=== PATIENT | female | born 1960 | race Caucasian/White ===

== ENCOUNTER 2016-10-30 19:02 | Inpatient (IN) | payer OTHER ==
[2016-10-30 19:49] LABS: Hematocrit 45 % (35-47); Hemoglobin 14.8 g/dl (12.0-16.0); Mean Corpuscular HGB Conc 33 g/dl (31-36); Mean Corpuscular Hemoglobin 32 pg (27-31); Mean Corpuscular Volume 98 fL (80-97); Mean Platelet Volume 8 um3 (7.4-10.4); Red Blood Count 4.55 10^6/ul (4.0-5.4); Red Cell Distribution Width 15 % (10.5-15); White Blood Count 8.8 10^3/ul (3.5-10.8)
[2016-10-30 19:58] LABS: Urine Bacteria Absent (Absent); Urine Bilirubin Negative (Negative); Urine Glucose Negative (Negative); Urine Nitrite Negative (Negative)
--- NOTE | 2016-10-30 20:01 | ED ---
Ebenezer Garcia Billy, scribed for Serg Durham MD on 10/30/16 at 1957 . Psychiatric Complaint - HPI Summary HPI Summary: Patient is a 55 year-old female coming to [facility] for voluntary MHE. She admits to having an alcohol addiction, stating that she needs rehabilitation. She has had a normal appetite but reports sleep disturbance. Denies any hallucinations. Denies SI/HI. - History Of Current Complaint Chief Complaint: EDMentalHealth Time Seen by Provider: 10/30/16 19:03 Hx Obtained From: Patient Hx Last Menstrual Period: 09/04/12 Onset/Duration: Gradual Onset Timing: Constant Severity Initially: Moderate Severity Currently: Moderate Character: Depressed Aggravating Factor(s): Alcohol Use Alleviating Factor(s): Nothing Associated Signs And Symptoms: Positive: Sleep Disturbance. Negative: Hallucinating, Appetite Change Related History: Positive For: Prior Psychiatric Issues Has Suicidal: Denies: Thoughts, With A Plan Has Homicidal: Denies: Thoughts, With A Plan - Allergies/Home Medications Allergies/Adverse Reactions: Allergies Allergy/AdvReac Type Severity Reaction Status Date / Time Bupropion [From Wellbutrin] Allergy Severe Dizziness Verified 07/03/16 12:32 Moxifloxacin [From Avelox] Allergy Intermediate Hives Verified 07/03/16 12:32 PMH/Surg Hx/FS Hx/Imm Hx Endocrine/Hematology History: Reports: Other Endocrine/Hematological Disorders - RA Denies: Hx Diabetes, Hx Thyroid Disease Cardiovascular History: Reports: Hx Hypertension Respiratory History: Reports: Other Respiratory Problems/Disorders - RHEUMATOID ARTHRITIS Denies: Hx Asthma, Hx Chronic Obstructive Pulmonary Disease (COPD) GI History: Denies: Hx Ulcer Musculoskeletal History: Denies: Hx Scoliosis Neurological History: Reports: Other Neuro Impairments/Disorders - RA Denies: Hx Headaches Psychiatric History: Reports: Hx Suicide Attempt, Hx Substance Abuse - Surgical History Surgery Procedure, Year, and Place: csection x2 Infectious Disease History: No Infectious Disease History: Denies: Hx Hepatitis, Hx Human Immunodeficiency Virus (HIV), Traveled Outside the [place] in Last 30 Days - Family History Known Family History: Positive: Cardiac Disease - CHF, Other - Colon CA, prostate CA Family History: Two brothers who have committed suicide. - Social History Alcohol Use: Rare Hx Substance Use: No Substance Use Type: Reports: None Hx Tobacco Use: Yes Smoking Status (MU): Current Some Day Smoker Review of Systems Negative: Fever Positive: Other - EtOH abuse All Other Systems Reviewed And Are Negative: Yes Physical Exam - Summary Physical Exam Summary: The patient is well-nourished in no acute distress and in no acute pain. The skin is warm and dry and skin color reflects adequate perfusion. There are no visible injuries to her arms. HEENT: The head is normocephalic and atraumatic. The pupils are equal and reactive. The conjunctivae are clear and without drainage. Nares are patent and without drainage. Mouth reveals moist mucous membranes and the throat is without erythema and exudate. The external ears are intact. The ear canals are patent and without drainage. The tympanic membranes are intact. Neck is supple with full range of motion and non-tender. There are no carotid bruits. There is no neck vein distension. Respiratory: Chest is non-tender. Lungs are clear to auscultation and breath sounds are symmetrical and equal. Cardiovascular: Heart is regular rate and rhythm. There is no murmur or rub auscultated. There is no peripheral edema and pulses are symmetrical and equal. Abdomen: The abdomen is soft and non-tender. There are normal bowel sounds heard in all four quadrants and there is no organomegaly palpated. Musculoskeletal: There is no back pain noted. Extremities are non-tender with full range of motion. There is good capillary refill. There is no peripheral edema or calf tenderness elicited. Neurological: Patient is alert and oriented to person, place and time. The patient has symmetrical motor strength in all four extremities. Psychiatric: Patient is somewhat slow to answer questions. She appears depressed. Triage Information Reviewed: Yes Vital Signs On Initial Exam: Initial Vitals Temp Pulse Resp BP Pulse Ox 97.4 F 89 16 168/108 97 10/30/16 19:47 10/30/16 19:47 10/30/16 19:47 10/30/16 19:47 10/30/16 19:47 Vital Signs Reviewed: Yes Diagnostics - Vital Signs Vital Signs Temp Pulse Resp BP Pulse Ox 10/30/16 19:47 97.4 F 89 16 168/108 97 - Laboratory Lab Results: Lab Results 10/30/16 Range/Units 19:25 WBC 8.8 (3.5-10.8) 10^3/ul RBC 4.55 (4.0-5.4) 10^6/ul Hgb 14.8 (12.0-16.0) g/dl Hct 45 (35-47) % MCV 98 H (80-97) fL MCH 32 H (27-31) pg MCHC 33 (31-36) g/dl RDW 15 (10.5-15) % Plt Count 280 (150-450) 10^3/ul MPV 8 (7.4-10.4) um3 Neut % (Auto) 66.6 (38-83) % Lymph % (Auto) 26.1 (25-47) % Stanly % (Auto) 6.4 (1-9) % Eos % (Auto) 0.6 (0-6) % Baso % (Auto) 0.3 (0-2) % Absolute Neuts (auto) 5.9 (1.5-7.7) 10^3/ul Absolute Lymphs (auto) 2.3 (1.0-4.8) 10^3/ul Absolute Monos (auto) 0.6 (0-0.8) 10^3/ul Absolute Eos (auto) 0.1 (0-0.6) 10^3/ul Absolute Basos (auto) 0 (0-0.2) 10^3/ul Absolute Nucleated RBC 0.01 10^3/ul Nucleated RBC % 0.1 Result Diagrams: 10/30/16 19:25 Lab Statement: Any lab studies that have been ordered have been reviewed, and results considered in the medical decision making process. Course/Dx - Course Assessment/Plan: 55 y/o female coming to [facility] for MHE and EtOH rehabilitation. Patient will be signed out at shift change pending MHE. - Differential Dx/Clinical Impression Differential Diagnosis/HQI/PQRI: Positive: Bipolar Disorder, Depression, Suicidal Ideation Provider Diagnosis: Depression, Alcohol abuse Discharge - Discharge Plan Condition: Stable Disposition: OTHER Discharge Disposition Comment: Signed out at shift change pending MHE. Referrals: Cristina Guy MD [Primary Care Provider] - The documentation as recorded by the Ebenezer reece Billy accurately reflects the service I personally performed and the decisions made by , Serg Durham MD.
[2016-10-30 20:02] LABS: ALT 19 U/L (7-52); AST 21 U/L (13-39); Albumin 4.7 g/dL (3.2-5.2); Alkaline Phosphatase 80 U/L (34-104); Anion Gap 12 mmol/L (2-11); Blood Urea Nitrogen 20 mg/dL (6-24); CO2 Carbon Dioxide 21 mmol/L (22-32); Calcium 9.4 mg/dL (8.6-10.3); Chloride 107 mmol/L (101-111); EGFR African American 105.2 (>60); EGFR Non-African American 81.8 (>60); Globulin 3.6 g/dL (2-4); Glucose 91 mg/dL (70-100); Potassium 3.8 mmol/L (3.5-5.0); Sodium 140 mmol/L (133-145); Total Protein 8.3 g/dL (6.4-8.9)
[2016-10-30 20:07] LABS: Benzodiazepine Urine Screen None Detected (None Detect)
[2016-10-30 20:14] LABS: Acetaminophen < 15 mcg/mL; Alcohol 250 mg/dL (<10); Salicylate < 2.50 mg/dL (<30)
[2016-10-30 20:21] LABS: TSH (Thyroid Stimulating Horm) 0.89 mcIU/mL (0.34-5.60)
[2016-10-30] MEDS ORDERED: QUEtiapine TAB* 100 MG PO ONE (21:48)
[2016-10-31 00:35] LABS: Lithium < 0.10 mmol/L (0.6-1.2)
[2016-10-31] MEDS ORDERED: HYDROcodone/ACETAMIN 5-325 MG* 1 TAB PO ONE (03:19)
--- NOTE | 2016-10-31 06:23 | ED ---
Progress - Progress Note Progress Note: pt evaluated and admitted by mental health in stable condition - Consult/PCP Time Called: 02:30 Course/Dx - Diagnoses Provider Diagnoses: Depression, Alcohol abuse
[2016-10-31] MEDS ORDERED: Mouth Piece, Nicotine* 1 EACH CARTRIDGE INH ONE (08:00)
[2016-10-31] MEDS ORDERED: LORazepam IM* PER WAM PARAMETERS IM SCH (08:00)
[2016-10-31] MEDS ORDERED: LORazepam TAB(*) WAM SCALE 0-6 MG PO SCH (08:00)
[2016-10-31] MEDS: Nicotine GUM* 2 MG PO PRN ×2 (08:36→18:56)
[2016-10-31] MEDS: Nicotine Inhaler* 10 MG AMP Q2H PRN CRAVING INH ×2 (08:37→14:12)
[2016-10-31] MEDS: Folic Acid TAB* 1 MG PO SCH (09:38)
[2016-10-31] MEDS: HYDROcodone/ACETAMIN 5-325 MG* 1 TAB PO PRN ×2 (09:38→14:13)
[2016-10-31] MEDS: Atenolol TAB* 50 MG PO SCH ×2 (09:38→22:48)
[2016-10-31] MEDS ORDERED: Methotrexate TAB* 2.5 MG PO SCH ×2 (10:00→11:00)
[2016-10-31] MEDS: Hydroxychloroquine TAB* 200 MG PO SCH ×2 (10:26→22:41)
[2016-10-31] MEDS ORDERED: Al Hydrox/Mg Hydrox/Simet LIQ* 30 ML UDC PO PRN (12:09)
[2016-10-31] MEDS ORDERED: Acetaminophen TAB* 325 MG PO PRN (12:09)
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
[2016-10-31] MEDS ORDERED: Mouth Piece, Nicotine* 1 EACH CARTRIDGE ONE (14:12)
--- NOTE | 2016-10-31 16:33 | PN ---
Progress Note - Progress Note Note: I interviewed the patient, examined her, and reviewed the medical record. She has had RA for many years, has been on disease-modifying drugs in the past. Recently she was reduced from 5 to 4 hydrocodone/APAP per day. She has had increased pain. Her CRP increased to 10.27 on 10/11/16 and she states her rhematologist said she may have to go back on Enbrel. There is no gross joint swelling but I believe she has arthralgia. She likely would do better on hydrocodone/APAP 5 times daily on schedule, which I ordered. The hospitalist service will be happy to see this patient again at your request.
[2016-10-31] MEDS: HYDROcodone/ACETAMIN 5-325 MG* 1 TAB PO SCH ×2 (18:14→22:41)
[2016-10-31] MEDS ORDERED: Ibuprofen TAB* 400 MG PO PRN (20:10)
[2016-10-31] MEDS: QUEtiapine TAB* 100 MG PO SCH (22:40)
[2016-10-31] MEDS: OMEGA 3 ACID ETHYL ESTERS PO SCH (22:41)
[2016-10-31] MEDS: hydrOXYzine HCL TAB* 50 MG PO PRN (22:43)
[2016-11-01] MEDS: Atenolol TAB* 50 MG PO SCH ×2 (08:15→22:14)
[2016-11-01] MEDS: Folic Acid TAB* 1 MG PO SCH (08:15)
[2016-11-01] MEDS: OMEGA 3 ACID ETHYL ESTERS PO SCH ×2 (08:15→22:13)
[2016-11-01] MEDS: Vitamin THERAPEUTIC TAB PO SCH (08:15)
[2016-11-01] MEDS: Hydroxychloroquine TAB* 200 MG PO SCH ×2 (08:15→22:14)
[2016-11-01] MEDS: HYDROcodone/ACETAMIN 5-325 MG* 1 TAB PO SCH ×5 (08:19→22:16)
[2016-11-01] MEDS: Nicotine GUM* 2 MG PO PRN ×3 (08:22→18:04)
[2016-11-01] MEDS: Nicotine Inhaler* 10 MG AMP Q2H PRN CRAVING INH ×2 (08:22→18:04)
[2016-11-01] MEDS ORDERED: Pneumococcal Vac Polyvalent* 0.5 ML VIAL IM ONE (09:00)
--- NOTE | 2016-11-01 16:23 | PN ---
Subjective - Subjective Subjective: Martin endorses lower distress level, ok mood, manageable level of anxiety ( since addition of vistaril prn last evening), she is no longer scoring on the WAM, she avidly denies suicidal ideation. She remains motivated to go to inpatient rehab to be close to a sister who is a physician. She endorses worrying about her daughter's mental health. Per staff, she is safe on checks and adherent to unit's routines. Objective - Appearance Appearance: Healthy Appearing Dysmorphic Features: No Hygiene: Normal Grooming: Well Kept - Behavior Psychomotor Activities: Normal Exhibits Abnormal Movement: No - Attitude and Relatedness Attitude and Relatedness: Cooperative Eye Contact: Fair - Speech Quality: Unpressured Latencies: Normal Quantity: Copious - Mood Patient's Decription of Mood: "Okay" - Affect Observed Affect: Constricted Affect Consistent with: Dysphoria - Thought Process Patient's Thought Process: Over Inclusive Thought Content: No Passive Wish, No Suicidal Planning, No Homicidal Ideation, No Paranoid Ideation - Sensorium Experiencing Hallucinations: No, Sensorium is Clear - Level of Consciousness Level of Consciousness: Alert Orientation: Yes Intact - Impulse Control Impulse Control: Intact - Insight and Judgement Insight and Judgement: Fair - Group Participation Particating in Group Activities: Yes - Medication Management Medication Management Adherence: Yes Assessment - Assessment Merits Inpatient Hospitalization: For Ongoing Evaluation, Consolidate Improvements, For Discharge Planning Inpatient DSM-IV Dx: Alcohol use disorder, severe; Clinical Impression: Progressing well through alcohol detoxification, motivated to go to inpatient rehab. Feels safe in the inpatient unit and finds it helpful to learn additional coping skills. Plan - Plan Treatment Plan: Name: MARTIN SEGOVIA Birthdate: 1960 [id number] Continued Medication Management: Continue Outpt Medication Medications: Current Medications Acetaminophen (Tylenol Tab*) 650 mg PO Q4H PRN PRN Reason: for pain; or Temp >101 F Hydrocodone Bitart/Acetaminophen ([place] 5-325 Tab*) 1 tab PO 2200 [facility] Last Admin: 10/31/16 22:41 Dose: 1 tab Hydrocodone Bitart/Acetaminophen ([place] 5-325 Tab*) 1 tab PO 0800,1100,1500, 1800 [facility] Last Admin: 11/01/16 15:23 Dose: 1 tab Al Hydrox/Mg Hydrox/Simethicone (Maalox Plus*) 30 ml PO Q4H PRN PRN Reason: INDIGESTION Atenolol (Tenormin Tab*) 50 mg PO BID [facility] Last Admin: 11/01/16 08:15 Dose: 50 mg Folic Acid (Folvite Tab*) 1 mg PO DAILY [facility] Last Admin: 11/01/16 08:15 Dose: 1 mg Hydroxychloroquine Sulfate (Plaquenil Tab*) 200 mg PO BID [facility] Last Admin: 11/01/16 08:15 Dose: 200 mg Hydroxyzine HCl (Atarax Tab*) 50 mg PO Q4H PRN PRN Reason: ANXIETY Last Admin: 10/31/16 22:43 Dose: 50 mg Ibuprofen (Motrin Tab*) 400 mg PO Q6H PRN PRN Reason: PAIN Lorazepam (Ativan Inj*) 0 - 6 mg IM .PER WAM PARAMETERS [facility] PRN Reason: Protocol Lorazepam (Ativan Tab(*)) 0 - 6 mg PO .PER WAM [facility] PRN Reason: Protocol Methotrexate (Methotrexate Tab*) 15 mg PO Fr@1100 [facility] Last Admin: 10/31/16 10:26 Dose: 15 mg Multivitamins (Theragran Tab*) 1 tab PO DAILY [facility] Last Admin: 11/01/16 08:15 Dose: 1 tab Nicotine (Nicotine Inhaler*) 10 mg INH Q2H PRN PRN Reason: CRAVING Last Admin: 11/01/16 08:22 Dose: 10 mg Nicotine Polacrilex (Nicotine Gum*) 2 mg PO Q2H PRN PRN Reason: CRAVINGS Last Admin: 11/01/16 15:30 Dose: 2 mg [id number] Ethyl Esters (Lovaza (Nf)) 1 gm PO BID [facility] Last Admin: 11/01/16 08:15 Dose: 1 gm Quetiapine Fumarate (Seroquel Tab*) 500 mg PO BEDTIME [facility] Last Admin: 10/31/16 22:40 Dose: 500 mg - Discharge Plan Discharge Plan: Drug/Alcohol Rehab Outpatient Program: TBD
[2016-11-01] MEDS: hydrOXYzine HCL TAB* 50 MG PO PRN (21:21)
[2016-11-01] MEDS: QUEtiapine TAB* 100 MG PO SCH (22:13)
[2016-11-02] MEDS: OMEGA 3 ACID ETHYL ESTERS PO SCH ×2 (07:46→22:17)
[2016-11-02] MEDS: Hydroxychloroquine TAB* 200 MG PO SCH ×2 (07:46→22:18)
[2016-11-02] MEDS: Atenolol TAB* 50 MG PO SCH ×2 (07:46→22:18)
[2016-11-02] MEDS: HYDROcodone/ACETAMIN 5-325 MG* 1 TAB PO SCH ×5 (07:46→22:19)
[2016-11-02] MEDS: Vitamin THERAPEUTIC TAB PO SCH (07:47)
[2016-11-02] MEDS: Folic Acid TAB* 1 MG PO SCH (07:47)
[2016-11-02] MEDS: hydrOXYzine HCL TAB* 50 MG PO PRN ×3 (07:47→22:19)
[2016-11-02] MEDS: Nicotine GUM* 2 MG PO PRN ×2 (09:35→19:19)
[2016-11-02] MEDS: Nicotine Inhaler* 10 MG AMP Q2H PRN CRAVING INH ×2 (15:01→19:19)
[2016-11-02] MEDS: QUEtiapine TAB* 100 MG PO SCH (22:19)
[2016-11-03] MEDS: Atenolol TAB* 50 MG PO SCH ×2 (09:20→20:50)
[2016-11-03] MEDS: Hydroxychloroquine TAB* 200 MG PO SCH ×2 (09:20→20:50)
[2016-11-03] MEDS: Vitamin THERAPEUTIC TAB PO SCH (09:20)
[2016-11-03] MEDS: Folic Acid TAB* 1 MG PO SCH (09:21)
[2016-11-03] MEDS: OMEGA 3 ACID ETHYL ESTERS PO SCH ×2 (09:21→20:50)
[2016-11-03] MEDS: HYDROcodone/ACETAMIN 5-325 MG* 1 TAB PO SCH ×5 (09:22→22:54)
[2016-11-03] MEDS: Nicotine Inhaler* 10 MG AMP Q2H PRN CRAVING INH ×3 (09:23→20:51)
[2016-11-03] MEDS: hydrOXYzine HCL TAB* 50 MG PO PRN ×2 (09:23→20:50)
--- NOTE | 2016-11-03 11:51 | PN ---
Subjective - Subjective Service Type: 58684 Hosp care 15 min low complexity Subjective: Martin reports sustained remission of SI and improved mood. She is giving me direct answers to questions too. She is looking forward to bed-to-bed transfer to rehab. She has no physical complaints. She reports good effect of Atarax against anxiety. She reports that her physician sister is helping with placement into [facility] rehab program. Objective - Appearance Appearance: Healthy Appearing Dysmorphic Features: No Hygiene: Normal Grooming: Well Kept - Behavior Psychomotor Activities: Normal Exhibits Abnormal Movement: No - Attitude and Relatedness Attitude and Relatedness: Well Related Eye Contact: Good - Speech Quality: Unpressured Latencies: Normal Quantity: Appropriate - Mood Patient's Decription of Mood: "Pretty good" - Thought Process Patient's Thought Process: Coherent, Goal Directed Thought Content: No Passive Wish, No Suicidal Planning, No Homicidal Ideation, No Paranoid Ideation - Sensorium Experiencing Hallucinations: No, Sensorium is Clear Type of Hallucinations: Visual: No, Auditory: No, Command: No - Level of Consciousness Level of Consciousness: Alert Orientation: Yes Intact, Yes Orientated to Time, Yes Orientated to Place, Yes Orientated to Person - Impulse Control Impulse Control: Intact - Insight and Judgement Insight and Judgement: Fair - Group Participation Particating in Group Activities: Yes Group Participation Comments: but few - Medication Management Medication Management Adherence: Yes Assessment - Assessment Merits Inpatient Hospitalization: For Stabilization, Consolidate Improvements, For Discharge Planning Inpatient DSM-IV Dx: Alcohol use disorder, severe. 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 Due to this , she has had an exacerbation of her psychiatric symptoms with suicidal ideation and with overall masked symptoms of mood disorder, if they are indeed present. She does give a report of a history of trauma and some PTSD symptoms, trauma perhaps repeated and severe, perhaps moving toward the possibility of useful diagnosis with complex PTSD. She has at this point poor recall of manic symptoms and so I cannot reliably assign a definite diagnosis of bipolar disorder, as per her reported history, but she is notably tangential in her reports. She denies any history of OCD or psychotic symptoms and at this point it is difficult to get a clear report of specific anxiety symptoms. We will be gathering further collateral from her sister, Karen, and it does seem like a family meeting with Karen and perhaps others could be helpful in guiding care and preparing aftercare. We will also be exploring with Martin how much she wants to involve her daughters in this admission, which might also be helpful to her. Aftercare is most likely to be referral to a long-term rehab program per the patient's preference. She states that she would like to go to a program that would be months long. Following that, she would do well to commit to outpatient psychiatric care as she has not done this in the past. 4.2.17 Martin reports feeling ready for transfer to rehab from alcohol, and has identified with Ms Ureña a program in the [facility] area that would work well for her, [facility]. She denies any continued mood symptoms or suicidality. Plan - Plan Treatment Plan: Name: MARTIN SEGOVIA Birthdate: 1960 [id number] Continue to plan for rehab bed-to-bed transfer for treatment of alcohol use disorder. Continue Seroquel against manic symptoms, with notable decrease today of tangential speech. Also worth noting that Seroquel doses above 400 mg have been found effective in helping maintain sobriety from alcohol. Encourage groups and milieu, especially [facility] programming. Continued Medication Management: Continue Outpt Medication Medications: Current Medications Acetaminophen (Tylenol Tab*) 650 mg PO Q4H PRN PRN Reason: for pain; or Temp >101 F Hydrocodone Bitart/Acetaminophen ([place] 5-325 Tab*) 1 tab PO 2200 [facility] Last Admin: 11/02/16 22:19 Dose: 1 tab Hydrocodone Bitart/Acetaminophen ([place] 5-325 Tab*) 1 tab PO 0800,1100,1500, 1800 [facility] Last Admin: 11/03/16 09:22 Dose: 1 tab Al Hydrox/Mg Hydrox/Simethicone (Maalox Plus*) 30 ml PO Q4H PRN PRN Reason: INDIGESTION Atenolol (Tenormin Tab*) 50 mg PO BID [facility] Last Admin: 11/03/16 09:20 Dose: 50 mg Folic Acid (Folvite Tab*) 1 mg PO DAILY [facility] Last Admin: 11/03/16 09:21 Dose: 1 mg Hydroxychloroquine Sulfate (Plaquenil Tab*) 200 mg PO BID [facility] Last Admin: 11/03/16 09:20 Dose: 200 mg Hydroxyzine HCl (Atarax Tab*) 50 mg PO Q4H PRN PRN Reason: ANXIETY Last Admin: 11/03/16 09:23 Dose: 50 mg Ibuprofen (Motrin Tab*) 400 mg PO Q6H PRN PRN Reason: PAIN Lorazepam (Ativan Inj*) 0 - 6 mg IM .PER WAM [facility]AMETERS [facility] PRN Reason: Protocol Lorazepam (Ativan Tab(*)) 0 - 6 mg PO .PER WAM [facility] PRN Reason: Protocol Methotrexate (Methotrexate Tab*) 15 mg PO Fr@1100 [facility] Last Admin: 10/31/16 10:26 Dose: 15 mg Multivitamins (Theragran Tab*) 1 tab PO DAILY [facility] Last Admin: 11/03/16 09:20 Dose: 1 tab Nicotine (Nicotine Inhaler*) 10 mg INH Q2H PRN PRN Reason: CRAVING Last Admin: 11/03/16 09:23 Dose: 10 mg Nicotine Polacrilex (Nicotine Gum*) 2 mg PO Q2H PRN PRN Reason: CRAVINGS Last Admin: 11/02/16 19:19 Dose: 2 mg [id number] Ethyl Esters (Lovaza (Nf)) 1 gm PO BID [facility] Last Admin: 11/03/16 09:21 Dose: 1 gm Quetiapine Fumarate (Seroquel Tab*) 500 mg PO BEDTIME [facility] Last Admin: 11/02/16 22:19 Dose: 500 mg - Discharge Plan Discharge Plan: Drug/Alcohol Rehab
--- NOTE | 2016-11-03 13:23 | PN ---
MHU: Group Therapy Note - Service Type Service Type: 24193 Group Psychotherapy - Cognitive Behavioral Group Therapy ( CBT):Patient was attentive and participatory in CBT programming this morning, and remained in good behavioral control. Patient expressed positive insights regarding relevant treatment interventions and goals.
[2016-11-03] MEDS ORDERED: Temazepam CAP* 15 MG PO PRN (14:37)
[2016-11-03] MEDS: Nicotine GUM* 2 MG PO PRN ×2 (16:30→20:51)
[2016-11-03] MEDS: QUEtiapine TAB* 100 MG PO SCH (22:54)
[2016-11-04] MEDS: Vitamin THERAPEUTIC TAB PO SCH (08:59)
[2016-11-04] MEDS: Folic Acid TAB* 1 MG PO SCH (08:59)
[2016-11-04] MEDS: Atenolol TAB* 50 MG PO SCH ×2 (08:59→22:08)
[2016-11-04] MEDS: hydrOXYzine HCL TAB* 50 MG PO PRN ×2 (09:02→18:49)
[2016-11-04] MEDS: HYDROcodone/ACETAMIN 5-325 MG* 1 TAB PO SCH ×5 (09:02→22:07)
[2016-11-04] MEDS: Nicotine Inhaler* 10 MG AMP Q2H PRN CRAVING INH ×3 (09:10→20:12)
[2016-11-04] MEDS ORDERED: Mouth Piece, Nicotine* 1 EACH CARTRIDGE ONE (09:10)
[2016-11-04] MEDS: Nicotine GUM* 2 MG PO PRN ×2 (09:12→19:56)
[2016-11-04] MEDS: Hydroxychloroquine TAB* 200 MG PO SCH ×2 (10:01→22:07)
[2016-11-04] MEDS: OMEGA 3 ACID ETHYL ESTERS PO SCH ×2 (11:18→22:08)
--- NOTE | 2016-11-04 11:48 | PN ---
MHU: Group Therapy Note - Service Type Service Type: [id number] Group Psychotherapy - Cognitive Behavioral Group Therapy ( CBT):Patient was attentive and participatory in CBT programming this morning, and remained in good behavioral control. Patient expressed positive insights regarding relevant treatment interventions and goals.
--- NOTE | 2016-11-04 16:57 | PN ---
Subjective - Subjective Service Type: 56450 Hosp care 15 min low complexity Subjective: Martin reports feeling well and looking forward to bed-to-bed transfer to rehab. She has no physical complaints. She reports good sleep with temazepam and request a second one time dose tonight. She reports a steady decline in her arthritic pain, now at 7, attributed to 25% increase in opioid analgesic dose as per Dr Jones's consult. She reports optimism as "this time feels different." Objective - Appearance Appearance: Healthy Appearing Dysmorphic Features: No Hygiene: Normal Grooming: Fairly Well Kept - Behavior Psychomotor Activities: Normal Exhibits Abnormal Movement: No - Attitude and Relatedness Attitude and Relatedness: Well Related Eye Contact: Good - f - Speech Quality: Unpressured Latencies: Normal Quantity: Appropriate - Mood Patient's Decription of Mood: "Good" - Affect Observed Affect: Good Affect Consistent with: Euthymia - Thought Process Patient's Thought Process: Coherent, Goal Directed Thought Content: No Passive Wish, No Suicidal Planning, No Homicidal Ideation, No Paranoid Ideation - Sensorium Experiencing Hallucinations: No, Sensorium is Clear Type of Hallucinations: Visual: No, Auditory: No, Command: No - Level of Consciousness Level of Consciousness: Alert Orientation: Yes Intact, Yes Orientated to Time, Yes Orientated to Place, Yes Orientated to Person - Impulse Control Impulse Control: Intact - Insight and Judgement Insight and Judgement: Fair - Group Participation Particating in Group Activities: Yes - Medication Management Medication Management Adherence: Yes Assessment - Assessment Merits Inpatient Hospitalization: Consolidate Improvements, For Discharge Planning Inpatient DSM-IV Dx: Alcohol use disorder, severe. 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 Due to this , she has had an exacerbation of her psychiatric symptoms with suicidal ideation and with overall masked symptoms of mood disorder, if they are indeed present. She does give a report of a history of trauma and some PTSD symptoms, trauma perhaps repeated and severe, perhaps moving toward the possibility of useful diagnosis with complex PTSD. She has at this point poor recall of manic symptoms and so I cannot reliably assign a definite diagnosis of bipolar disorder, as per her reported history, but she is notably tangential in her reports. She denies any history of OCD or psychotic symptoms and at this point it is difficult to get a clear report of specific anxiety symptoms. We will be gathering further collateral from her sister, Karen, and it does seem like a family meeting with Karen and perhaps others could be helpful in guiding care and preparing aftercare. We will also be exploring with Martin how much she wants to involve her daughters in this admission, which might also be helpful to her. Aftercare is most likely to be referral to a long-term rehab program per the patient's preference. She states that she would like to go to a program that would be months long. Following that, she would do well to commit to outpatient psychiatric care as she has not done this in the past. 4.2.17 Martin reports feeling ready for transfer to rehab from alcohol, and has identified with Ms Ureña a program in the [facility] area that would work well for her, [facility]. She denies any continued mood symptoms or suicidality. 4.4.17 Martin has no psychiatric complaints aside from fear of recurrent insomnia. She is better organized, not tangential now with me. She reports improvement in her pain management. She is looking forward to rehab. Plan - Plan Treatment Plan: Name: MARTIN SEGOVIA Birthdate: 1960 [id number] Continue to plan for rehab bed-to-bed transfer for treatment of alcohol use disorder. Continue Seroquel against manic symptoms, with notable decrease today of tangential speech. Also worth noting that Seroquel doses above 400 mg have been found effective in helping maintain sobriety from alcohol. Encourage groups and milieu, especially [facility] programming. Medications: Current Medications Acetaminophen (Tylenol Tab*) 650 mg PO Q4H PRN PRN Reason: for pain; or Temp >101 F Hydrocodone Bitart/Acetaminophen ([place] 5-325 Tab*) 1 tab PO 2200 [facility] Last Admin: 11/03/16 22:54 Dose: 1 tab Hydrocodone Bitart/Acetaminophen ([place] 5-325 Tab*) 1 tab PO 0800,1100,1500, 1800 [facility] Last Admin: 11/04/16 16:02 Dose: 1 tab Al Hydrox/Mg Hydrox/Simethicone (Maalox Plus*) 30 ml PO Q4H PRN PRN Reason: INDIGESTION Atenolol (Tenormin Tab*) 50 mg PO BID [facility] Last Admin: 11/04/16 08:59 Dose: 50 mg Fish Oil (Fish Oil (Nf)) 1,000 mg PO BID [facility] Folic Acid (Folvite Tab*) 1 mg PO DAILY [facility] Last Admin: 11/04/16 08:59 Dose: 1 mg Hydroxychloroquine Sulfate (Plaquenil Tab*) 200 mg PO BID [facility] Last Admin: 11/04/16 10:01 Dose: 200 mg Hydroxyzine HCl (Atarax Tab*) 50 mg PO Q4H PRN PRN Reason: ANXIETY Last Admin: 11/04/16 09:02 Dose: 50 mg Ibuprofen (Motrin Tab*) 400 mg PO Q6H PRN PRN Reason: PAIN Methotrexate (Methotrexate Tab*) 15 mg PO Fr@1100 [facility] Last Admin: 10/31/16 10:26 Dose: 15 mg Multivitamins (Theragran Tab*) 1 tab PO DAILY [facility] Last Admin: 11/04/16 08:59 Dose: 1 tab Nicotine (Nicotine Inhaler*) 10 mg INH Q2H PRN PRN Reason: CRAVING Last Admin: 11/04/16 16:02 Dose: 10 mg Nicotine Polacrilex (Nicotine Gum*) 2 mg PO Q2H PRN PRN Reason: CRAVINGS Last Admin: 11/04/16 09:12 Dose: 2 mg Quetiapine Fumarate (Seroquel Tab*) 500 mg PO BEDTIME [facility] Last Admin: 11/03/16 22:54 Dose: 500 mg - Discharge Plan Discharge Plan: Drug/Alcohol Rehab
[2016-11-04] MEDS ORDERED: Temazepam CAP* 15 MG PO ONE ×2 (16:58→21:00)
[2016-11-04] MEDS: QUEtiapine TAB* 100 MG PO SCH (22:08)
[2016-11-05] MEDS: OMEGA 3 ACID ETHYL ESTERS PO SCH ×2 (08:58→21:58)
[2016-11-05] MEDS: Vitamin THERAPEUTIC TAB PO SCH (08:58)
[2016-11-05] MEDS: Hydroxychloroquine TAB* 200 MG PO SCH ×2 (08:58→21:57)
[2016-11-05] MEDS: Atenolol TAB* 50 MG PO SCH ×2 (08:58→21:58)
[2016-11-05] MEDS: Folic Acid TAB* 1 MG PO SCH (08:58)
[2016-11-05] MEDS: HYDROcodone/ACETAMIN 5-325 MG* 1 TAB PO SCH ×5 (09:00→21:59)
[2016-11-05] MEDS: Nicotine GUM* 2 MG PO PRN ×3 (09:00→20:57)
[2016-11-05] MEDS: hydrOXYzine HCL TAB* 50 MG PO PRN ×3 (09:00→20:12)
--- NOTE | 2016-11-05 09:04 | PN ---
Subjective - Subjective Service Type: 17556 Hosp care 15 min low complexity Subjective: Martin reports having felt like she did not drink enough water after taking many pills last night, so woke up feeling like she had undigested pills in her stomach. She report that she nevertheless slept well. She asked if she could continue hydroxyzine after discharge (yes). She says her elder daughter would like to speak with me about Martin's PTSD. She says her arthritic pain is a bit worse today, rated 8/10 (was '11/10' at admission). Objective - Appearance Appearance: Healthy Appearing Dysmorphic Features: No Hygiene: Normal Grooming: Fairly Well Kept - Behavior Psychomotor Activities: Normal Exhibits Abnormal Movement: No - Attitude and Relatedness Attitude and Relatedness: Well Related Eye Contact: Good - Speech Quality: Unpressured Latencies: Normal Quantity: Appropriate - Mood Patient's Decription of Mood: "Good" - Affect Observed Affect: Fair Affect Consistent with: Euthymia - though slightly more anxious today - Thought Process Patient's Thought Process: Coherent, Goal Directed Thought Content: No Passive Wish, No Suicidal Planning, No Homicidal Ideation, No Paranoid Ideation - Sensorium Experiencing Hallucinations: No, Sensorium is Clear Type of Hallucinations: Visual: No, Auditory: No, Command: No - Level of Consciousness Level of Consciousness: Alert Orientation: Yes Intact, Yes Orientated to Time, Yes Orientated to Place, Yes Orientated to Person - Impulse Control Impulse Control: Intact - Insight and Judgement Insight and Judgement: Fair - Group Participation Particating in Group Activities: Yes - Medication Management Medication Management Adherence: Yes Assessment - Assessment Merits Inpatient Hospitalization: Consolidate Improvements, For Discharge Planning Inpatient DSM-IV Dx: Alcohol use disorder, severe. 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 Due to this , she has had an exacerbation of her psychiatric symptoms with suicidal ideation and with overall masked symptoms of mood disorder, if they are indeed present. She does give a report of a history of trauma and some PTSD symptoms, trauma perhaps repeated and severe, perhaps moving toward the possibility of useful diagnosis with complex PTSD. She has at this point poor recall of manic symptoms and so I cannot reliably assign a definite diagnosis of bipolar disorder, as per her reported history, but she is notably tangential in her reports. She denies any history of OCD or psychotic symptoms and at this point it is difficult to get a clear report of specific anxiety symptoms. We will be gathering further collateral from her sister, Karen, and it does seem like a family meeting with Karen and perhaps others could be helpful in guiding care and preparing aftercare. We will also be exploring with Martin how much she wants to involve her daughters in this admission, which might also be helpful to her. Aftercare is most likely to be referral to a long-term rehab program per the patient's preference. She states that she would like to go to a program that would be months long. Following that, she would do well to commit to outpatient psychiatric care as she has not done this in the past. 4.2.17 Martin reports feeling ready for transfer to rehab from alcohol, and has identified with Ms Ureña a program in the [facility] area that would work well for her, [facility]. She denies any continued mood symptoms or suicidality. 4.4.17 Martin has no psychiatric complaints aside from fear of recurrent insomnia. She is better organized, not tangential now with me. She reports improvement in her pain management. She is looking forward to rehab. 4.5.17 Martin continues to show some mild residual signs of jackson, with very mildly pressured speech, but her manic symptoms seem nearly in full remission at this point. She remains committed to rehab. Plan - Plan Treatment Plan: Name: MARTIN SEGOVIA Birthdate: 1960 [id number] Continue to plan for rehab bed-to-bed transfer for treatment of alcohol use disorder. Continue Seroquel against manic symptoms, with sustained remission of tangential speech. Also worth noting that Seroquel doses above 400 mg have been found effective in helping maintain sobriety from alcohol. Encourage groups and milieu, especially [facility] programming. Told Martin I could send her out with hydroxyzine as requested. Medications: Current Medications Acetaminophen (Tylenol Tab*) 650 mg PO Q4H PRN PRN Reason: for pain; or Temp >101 F Hydrocodone Bitart/Acetaminophen ([place] 5-325 Tab*) 1 tab PO 2200 [facility] Last Admin: 11/04/16 22:07 Dose: 1 tab Hydrocodone Bitart/Acetaminophen ([place] 5-325 Tab*) 1 tab PO 0800,1100,1500, 1800 [facility] Last Admin: 11/04/16 18:48 Dose: 1 tab Al Hydrox/Mg Hydrox/Simethicone (Maalox Plus*) 30 ml PO Q4H PRN PRN Reason: INDIGESTION Atenolol (Tenormin Tab*) 50 mg PO BID [facility] Last Admin: 11/04/16 22:08 Dose: 50 mg Fish Oil (Fish Oil (Nf)) 1,000 mg PO BID [facility] Last Admin: 11/04/16 22:08 Dose: 1,000 mg Folic Acid (Folvite Tab*) 1 mg PO DAILY [facility] Last Admin: 11/04/16 08:59 Dose: 1 mg Hydroxychloroquine Sulfate (Plaquenil Tab*) 200 mg PO BID [facility] Last Admin: 11/04/16 22:07 Dose: 200 mg Hydroxyzine HCl (Atarax Tab*) 50 mg PO Q4H PRN PRN Reason: ANXIETY Last Admin: 11/04/16 18:49 Dose: 50 mg Ibuprofen (Motrin Tab*) 400 mg PO Q6H PRN PRN Reason: PAIN Methotrexate (Methotrexate Tab*) 15 mg PO Fr@1100 [facility] Last Admin: 10/31/16 10:26 Dose: 15 mg Multivitamins (Theragran Tab*) 1 tab PO DAILY [facility] Last Admin: 11/04/16 08:59 Dose: 1 tab Nicotine (Nicotine Inhaler*) 10 mg INH Q2H PRN PRN Reason: CRAVING Last Admin: 11/04/16 20:12 Dose: 10 mg Nicotine Polacrilex (Nicotine Gum*) 2 mg PO Q2H PRN PRN Reason: CRAVINGS Last Admin: 11/04/16 19:56 Dose: 2 mg Quetiapine Fumarate (Seroquel Tab*) 500 mg PO BEDTIME [facility] Last Admin: 11/04/16 22:08 Dose: 500 mg - Discharge Plan Discharge Plan: Drug/Alcohol Rehab
[2016-11-05] MEDS: Nicotine Inhaler* 10 MG AMP Q2H PRN CRAVING INH ×3 (11:32→20:57)
[2016-11-05] MEDS: QUEtiapine TAB* 100 MG PO SCH (21:58)
[2016-11-06] MEDS: Folic Acid TAB* 1 MG PO SCH (08:50)
[2016-11-06] MEDS: Hydroxychloroquine TAB* 200 MG PO SCH ×2 (08:50→21:56)
[2016-11-06] MEDS: Atenolol TAB* 50 MG PO SCH ×2 (08:50→21:57)
[2016-11-06] MEDS: OMEGA 3 ACID ETHYL ESTERS PO SCH ×2 (08:50→21:56)
[2016-11-06] MEDS: Vitamin THERAPEUTIC TAB PO SCH (08:50)
[2016-11-06] MEDS: HYDROcodone/ACETAMIN 5-325 MG* 1 TAB PO SCH ×5 (08:52→21:56)
[2016-11-06] MEDS: hydrOXYzine HCL TAB* 50 MG PO PRN ×3 (08:52→21:12)
[2016-11-06] MEDS: Nicotine GUM* 2 MG PO PRN ×3 (09:41→18:00)
[2016-11-06] MEDS: Nicotine Inhaler* 10 MG AMP Q2H PRN CRAVING INH ×3 (09:41→18:00)
--- NOTE | 2016-11-06 10:40 | PN ---
Subjective - Subjective Service Type: 18899 Hosp care 25 min moderate complexity Subjective: Martin reports feeling sad today about the 10th anniversary today of the by suicide of her brother. She is apprehensive about transfer to rehab, having heard that her insurance may not cover that care, and that [facility] requires that she has failed outpatient rehab treatment before accepting her. She says she 'can't go out there' when considering that latter news, feels she must go to an inpatient rehab. She denies any intent or plan to harm herself, just feels very sad. She complains of abdominal/stomach discomfort at night. She attributes this to medications and asks for a dose reduction of Seroquel and perhaps also Atarax. It is difficult to interrupt her speech today. She stays on topic, but speaks for over 2 minutes at times despite my cues that I would like to make a relevant interjection. Objective - Appearance Appearance: Well Developed/Nourished Dysmorphic Features: No Hygiene: Normal Grooming: Well Kept - Behavior Psychomotor Activities: Normal Exhibits Abnormal Movement: No - Attitude and Relatedness Attitude and Relatedness: Cooperative - but with loquacious anxiety Eye Contact: Good - Speech Quality: Pressured - mildly Latencies: Short Quantity: Copious - Mood Patient's Decription of Mood: "Okay" - Affect Observed Affect: Tearful Affect Consistent with: Dysphoria - with thoughts of 10th anniversary of brother 's suicide - Thought Process Patient's Thought Process: Coherent, Goal Directed, Circumstantial Thought Content: No Passive Wish, No Suicidal Planning, No Homicidal Ideation, No Paranoid Ideation - Sensorium Experiencing Hallucinations: No, Sensorium is Clear Type of Hallucinations: Visual: No, Auditory: No, Command: No - Level of Consciousness Level of Consciousness: Alert Orientation: Yes Intact, Yes Orientated to Time, Yes Orientated to Place, Yes Orientated to Person - Impulse Control Impulse Control: Intact - Insight and Judgement Insight and Judgement: Fair - Group Participation Particating in Group Activities: Yes - Medication Management Medication Management Adherence: Yes Assessment - Assessment Merits Inpatient Hospitalization: For Stabilization, Consolidate Improvements, For Discharge Planning Inpatient DSM-IV Dx: Alcohol use disorder, severe. 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 Due to this , she has had an exacerbation of her psychiatric symptoms with suicidal ideation and with overall masked symptoms of mood disorder, if they are indeed present. She does give a report of a history of trauma and some PTSD symptoms, trauma perhaps repeated and severe, perhaps moving toward the possibility of useful diagnosis with complex PTSD. She has at this point poor recall of manic symptoms and so I cannot reliably assign a definite diagnosis of bipolar disorder, as per her reported history, but she is notably tangential in her reports. She denies any history of OCD or psychotic symptoms and at this point it is difficult to get a clear report of specific anxiety symptoms. We will be gathering further collateral from her sister, Karen, and it does seem like a family meeting with Karen and perhaps others could be helpful in guiding care and preparing aftercare. We will also be exploring with Martin how much she wants to involve her daughters in this admission, which might also be helpful to her. Aftercare is most likely to be referral to a long-term rehab program per the patient's preference. She states that she would like to go to a program that would be months long. Following that, she would do well to commit to outpatient psychiatric care as she has not done this in the past. 4.2.17 Martin reports feeling ready for transfer to rehab from [facility], and has identified with Ms Ureña a program in the [facility] area that would work well for her, [facility]. She denies any continued mood symptoms or suicidality. 4.4.17 Martin has no psychiatric complaints aside from fear of recurrent insomnia. She is better organized, not tangential now with me. She reports improvement in her pain management. She is looking forward to rehab. 4.5.17 Martin continues to show some mild residual signs of jackson, with very mildly pressured speech, but her manic symptoms seem nearly in full remission at this point. She remains committed to rehab. 4.6.17 Martin is tearful about the 10th anniversary of the suicide of her brother today. She has no dangerous intent or plan or psychosis. She is pressured in her speech, but not tangential, only loquacious around her anxiety. She complains of queasiness that she attributes to medications, and requests a dose reduction of Seroquel from 500 mg to 400 mg nightly, and also suspects Atarax might be contributing to her queasiness. She is apprehensive about funding of and acceptance into inpatient rehab, which she says she feels she must have in order to be safe from relapse. Plan - Plan Treatment Plan: Name: MARTIN SEGOVIA Birthdate: 1960 [id number] Continue to plan for rehab bed-to-bed transfer for treatment of alcohol use disorder. Continue Seroquel at reduced 400 against manic symptoms, with sustained remission of tangential speech, though more loquacious on topic today. Also worth noting that Seroquel doses above 400 mg have been found effective in helping maintain sobriety from alcohol. Encourage groups and milieu, especially [facility] programming. Told Martin I could send her out with hydroxyzine as requested. Medications: Current Medications Acetaminophen (Tylenol Tab*) 650 mg PO Q4H PRN PRN Reason: for pain; or Temp >101 F Last Admin: 11/06/16 04:27 Dose: 650 mg Hydrocodone Bitart/Acetaminophen ([place] 5-325 Tab*) [address] [facility] Last Admin: 11/05/16 21:59 Dose: 1 tab Hydrocodone Bitart/Acetaminophen ([place] 5-325 Tab*) 1 tab PO 0800,1100,1500, 1800 [facility] Last Admin: 11/06/16 08:52 Dose: 1 tab Al Hydrox/Mg Hydrox/Simethicone (Maalox Plus*) 30 ml PO Q4H PRN PRN Reason: INDIGESTION Last Admin: 11/06/16 04:27 Dose: 30 ml Atenolol (Tenormin Tab*) [address] [facility] Last Admin: 11/06/16 08:50 Dose: 50 mg Fish Oil (Fish Oil (Nf)) 1,[address] [facility] Last Admin: 11/06/16 08:50 Dose: 1,000 mg Folic Acid (Folvite Tab*) [address] [facility] Last Admin: 11/06/16 08:50 Dose: 1 mg Hydroxychloroquine Sulfate (Plaquenil Tab*) [address] [facility] Last Admin: 11/06/16 08:50 Dose: 200 mg Hydroxyzine HCl (Atarax Tab*) 50 mg PO Q4H PRN PRN Reason: ANXIETY Last Admin: 11/06/16 08:52 Dose: 50 mg Ibuprofen (Motrin Tab*) 400 mg PO Q6H PRN PRN Reason: PAIN Last Admin: 11/05/16 09:01 Dose: 400 mg Methotrexate (Methotrexate Tab*) 15 mg PO Fr@1100 [facility] Last Admin: 10/31/16 10:26 Dose: 15 mg Multivitamins (Theragran Tab*) [address] [facility] Last Admin: 11/06/16 08:50 Dose: 1 tab Nicotine (Nicotine Inhaler*) 10 mg INH Q2H PRN PRN Reason: CRAVING Last Admin: 11/06/16 09:41 Dose: 10 mg Nicotine Polacrilex (Nicotine Gum*) 2 mg PO Q2H PRN PRN Reason: CRAVINGS Last Admin: 11/06/16 09:41 Dose: 2 mg Quetiapine Fumarate (Seroquel Tab*) [address] [facility] Last Admin: 11/05/16 21:58 Dose: 500 mg - Discharge Plan Discharge Plan: Drug/Alcohol Rehab
[2016-11-06] MEDS ORDERED: QUEtiapine TAB* 100 MG PO SCH (11:05)
--- NOTE | 2016-11-06 14:09 | PN ---
MHU: Group Therapy Note - Service Type Service Type: 59403 Group Psychotherapy - Cognitive Behavioral Group Therapy ( CBT):Patient was attentive and participatory in CBT programming this morning, and remained in good behavioral control. Patient expressed positive insights regarding relevant treatment interventions and goals.
--- NOTE | 2016-11-06 16:12 | DS ---
Subjective - Subjective Service Types: 29444 Hosp DC Day Mgmt complex over 30 min Discharge Date: 11/06/16 Subjective: Maddie is happy she will transfer bed-to-bed to [facility] rehab tomorrow. She continues to report some abdominal discomfort that she has attributed to 'too many pills', but otherwise has no physical complaints. Objective - Appearance Appearance: Healthy Appearing Dysmorphic Features: No Hygiene: Normal Grooming: Well Kept - Behavior Psychomotor Activities: Normal Exhibits Abnormal Movement: No - Attitude and Relatedness Attitude and Relatedness: Well Related Eye Contact: Good - Speech Quality: Unpressured Latencies: Normal Quantity: Appropriate - Mood Patient's Decription of Mood: "Good" - Affect Observed Affect: Good Affect Consistent with: Euthymia - Thought Process Patient's Thought Process: Coherent, Goal Directed Thought Content: No Passive Wish, No Suicidal Planning, No Homicidal Ideation, No Paranoid Ideation - Sensorium Experiencing Hallucinations: No, Sensorium is Clear - Level of Consciousness Level of Consciousness: Alert Orientation: Yes Intact, Yes Orientated to Time, Yes Orientated to Place, Yes Orientated to Person - Impulse Control Impulse Control: Intact - Insight and Judgement Insight and Judgement: Fair - Group Participation Particating in Group Activities: Yes - Medication Management Medication Management Adherence: Yes Treatment Course & Assessment Clinical Course & Impression: 3.31.17 Maddie Truong is a 55-year-old, single mother of two who has a long history of alcohol use disorder that has resulted 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 Due to this , she has had an exacerbation of her psychiatric symptoms with suicidal ideation and with overall masked symptoms of mood disorder, if they are indeed present. She does give a report of a history of trauma and some PTSD symptoms, trauma perhaps repeated and severe, perhaps moving toward the possibility of useful diagnosis with complex PTSD. She has at this point poor recall of manic symptoms and so I cannot reliably assign a definite diagnosis of bipolar disorder, as per her reported history, but she is notably tangential in her reports. She denies any history of OCD or psychotic symptoms and at this point it is difficult to get a clear report of specific anxiety symptoms. We will be gathering further collateral from her sister, Karen, and it does seem like a family meeting with Karen and perhaps others could be helpful in guiding care and preparing aftercare. We will also be exploring with Maddie how much she wants to involve her daughters in this admission, which might also be helpful to her. Aftercare is most likely to be referral to a long-term rehab program per the patient's preference. She states that she would like to go to a program that would be months long. Following that, she would do well to commit to outpatient psychiatric care as she has not done this in the past. 4.2.17 Maddie reports feeling ready for transfer to rehab from alcohol, and has identified with Ms Ureña a program in the [facility] that would work well for her , [facility]. She denies any continued mood symptoms or suicidality. 4.4.17 Maddie has no psychiatric complaints aside from fear of recurrent insomnia. She is better organized and no longer tangential. She reports improvement in her pain management. She is looking forward to rehab. 4.5.17 Maddie continues to show some mild residual signs of jackson, with very mildly pressured speech, but her manic symptoms seem nearly in full remission at this point. She remains committed to rehab. 4.6.17 Maddie is tearful about the 10th anniversary of the suicide of her brother today. She has no dangerous intent or plan or psychosis. She is pressured in her speech, but not tangential, only loquacious around her anxiety. She complains of queasiness that she attributes to medications, and requests a dose reduction of Seroquel from 500 mg to 400 mg nightly, and also suspects Atarax might be contributing to her queasiness. She is apprehensive about funding of and acceptance into inpatient rehab, which she says she feels she must have in order to be safe from relapse. Maddie has been accepted into [facility] rehab to start tomorrow morning 4... She continues to report sustained remission of suicidal ideation, as she has for the past 4+ days. She also reports stable mood. She denies any dangerous intent or plan. She has been a calm presence on the unit, with no behavioral issues. She has been participating in groups. She is bright and future oriented, and looking forward to establishing sobriety from alcohol. She is cleared for discharge to make a bed-to-bed transfer to [facility] rehab tomorrow morning. Her family is in full support of her moving forward into sobriety. She has agreed to engage in psychiatric care and continued treatment for substance abuse at [facility] and [facility] following her rehab at [facility]. She is committed also to continued medical care for her rheumatoid arthritis. She has benefited functionally from opioid analgesia for her RA pain, as per assessment by hospitalist Dr Jones. Merits Inpatient Hospitalization: No Clear for Discharge: Adequate Clinical Respons, Acceptable Safety Profile, Low Utility of Inpt Care, Other - Ready for transfer to [facility] rehab Inpatient DSM-IV Dx: Alcohol use disorder, severe. Bipolar Affective Disorder, MRE hypomanic - Barco I Mental Illness: Other specified bipolar affective disorder. Alcohol use disorder, severe - Barco II MR and Personality Disorder: Deferred - Barco III Medical Illness: Rheumatoid Arthritis - Barco IV Stressors: loss of business due to intoxication with alcohol Family: supportive sister and daughters - Barco V [id number]: 65 Estimate of Highest-Past Year: 75 Discharge Planning - Discharge Planning Discharge Plan: Drug/Alcohol Rehab - at [facility] Recommendations for Continuing Care: Medication Management, Psychotherapy, Substance Abuse Counseling, Routine Metabolic Monitoring - because she is on Seroquel, Primary Care Followup, Specialty Followup - rheumatology Medications: Hydrocodone Bitart/Acetaminophen ([place] 5-325 Tab*) 1 tab PO 0800,1100,1500, 1800, 2200 [facility] Last Admin: 11/06/16 14:28 Dose: 1 tab Al Hydrox/Mg Hydrox/Simethicone (Maalox Plus*) 30 ml PO Q4H PRN PRN Reason: INDIGESTION Last Admin: 11/06/16 04:27 Dose: 30 ml Atenolol (Tenormin Tab*) 50 mg PO BID [facility] Last Admin: 11/06/16 08:50 Dose: 50 mg Fish Oil (Fish Oil (Nf)) 1,000 mg PO BID [facility] Last Admin: 11/06/16 08:50 Dose: 1,000 mg Folic Acid (Folvite Tab*) 1 mg PO DAILY [facility] Last Admin: 11/06/16 08:50 Dose: 1 mg Hydroxychloroquine Sulfate (Plaquenil Tab*) 200 mg PO BID [facility] Last Admin: 11/06/16 08:50 Dose: 200 mg Hydroxyzine HCl (Atarax Tab*) 50 mg PO Q4H PRN PRN Reason: ANXIETY Last Admin: 11/06/16 13:58 Dose: 50 mg Methotrexate (Methotrexate Tab*) 15 mg PO Fr@1100 [facility] Last Admin: 10/31/16 10:26 Dose: 15 mg Multivitamins (Theragran Tab*) 1 tab PO DAILY [facility] Last Admin: 11/06/16 08:50 Dose: 1 tab Nicotine (Nicotine Inhaler*) 10 mg INH Q2H PRN PRN Reason: CRAVING Last Admin: 11/06/16 13:57 Dose: 10 mg Nicotine Polacrilex (Nicotine Gum*) 2 mg PO Q2H PRN PRN Reason: CRAVINGS Last Admin: 11/06/16 13:57 Dose: 2 mg Quetiapine Fumarate (Seroquel Tab*) 400 mg PO BEDTIME [facility] Discharge Planning: Prescriptions provided for discharge [] Yes [x] No, as medications will be supplied at [facility] by their pharmacy per the list in this discharge summary. Follow up care details as per social work arrangements. Patient response to discharge plan: [x] eager for discharge [x] agreeable with discharge plan [] ambivalent about discharge [] disagrees with discharge today
[2016-11-07 07:46] VITALS: BP 143/89
[2016-11-07] MEDS: hydrOXYzine HCL TAB* 50 MG PO PRN (08:27)
[2016-11-07] MEDS: Hydroxychloroquine TAB* 200 MG PO SCH (08:27)
[2016-11-07] MEDS: Folic Acid TAB* 1 MG PO SCH (08:27)
[2016-11-07] MEDS: Vitamin THERAPEUTIC TAB PO SCH (08:27)
[2016-11-07] MEDS: OMEGA 3 ACID ETHYL ESTERS PO SCH (08:27)
[2016-11-07] MEDS: Atenolol TAB* 50 MG PO SCH (08:27)
[2016-11-07] MEDS: Nicotine Inhaler* 10 MG AMP Q2H PRN CRAVING INH (08:28)
== END 2016-11-07 08:50 | DRG 753 ==
LOC: ED 19:02 → BSU 10-31 07:13
PROVIDERS: ADMIT Psychiatry & Neurology Psychiatry; ATTEND Psychiatry & Neurology Psychiatry
PROC: GZHZZZZ Group Psychotherapy (ICD-10-PCS; principal; 2016-11-03)
PROC: GZ58ZZZ Individual Psychotherapy, Cognitive-Behavioral (ICD-10-PCS; 2016-11-03)
DX: F31.89 Other bipolar disorder (principal); R45.851 Suicidal ideations; I10 Essential (primary) hypertension; F43.10 Post-traumatic stress disorder, unspecified; M06.9 Rheumatoid arthritis, unspecified; Z80.42 Family history of malignant neoplasm of prostate; Z80.0 Family history of malignant neoplasm of digestive organs; Z72.89 Other problems related to lifestyle; Z88.8 Allergy status to other drugs, medicaments and biological substances; Z88.1 Allergy status to other antibiotic agents
CPT/HCPCS: 36415; 80053; 80178; 80307; 80320; 80329; 81003; 81015; 84443; 85025; 90732; 90853; 99222; 99231; 99232; 99238; 99406; A9270-GY; G0480; J8610

== ENCOUNTER 2018-08-06 18:23 | Inpatient (IN) | payer OTHER ==
--- NOTE | 2018-08-06 19:36 | ED ---
Psychiatric Complaint - HPI Summary HPI Summary: This patient is a 57 year old F presenting to [facility] with a chief complaint of hopelessness and helplessness and states she would like to stop taking hydrocodone for her RA. She admits to abusing her prescription and states she takes her hydrocodone at triple the prescribed dose. She denies current SI and expresses no desire to harm herself. She reports a family history of depression and suicide. - History Of Current Complaint Chief Complaint: EDMentalHealth Time Seen by Provider: 08/06/18 19:25 Hx Obtained From: Patient Hx Last Menstrual Period: 09/04/12 Onset/Duration: Gradual Onset Character: Depressed Aggravating Factor(s): Drug Use Associated Signs And Symptoms: Positive: Negative Related History: Positive For: Prior Psychiatric Issues Has Suicidal: Denies: Thoughts - Allergies/Home Medications Allergies/Adverse Reactions: Allergies Allergy/AdvReac Type Severity Reaction Status Date / Time bupropion Allergy Severe Dizziness Verified 08/07/18 01:22 moxifloxacin Allergy Intermediate Vomiting Verified 08/07/18 01:22 PMH/Surg Hx/FS Hx/Imm Hx Endocrine/Hematology History: Reports: Other Endocrine/Hematological Disorders - RA Denies: Hx Diabetes, Hx Thyroid Disease Cardiovascular History: Reports: Hx Hypertension Respiratory History: Reports: Other Respiratory Problems/Disorders - RA Denies: Hx Asthma, Hx Chronic Obstructive Pulmonary Disease (COPD) GI History: Denies: Hx Ulcer Musculoskeletal History: Reports: Hx Arthritis - Rheumatoid Denies: Hx Scoliosis Sensory History: Reports: Hx Vision Problem - Reports needing glasses Denies: Hx Contacts or Glasses, Hx Hearing Aid Opthamlomology History: Reports: Hx Vision Problem - Reports needing glasses Denies: Hx Contacts or Glasses Neurological History: Reports: Other Neuro Impairments/Disorders - RA Denies: Hx Headaches Psychiatric History: Reports: Hx Anxiety, Hx Depression, Hx Post Traumatic Stress Disorder, Hx Inpatient Treatment, Hx Community Mental Health Tx, Hx Bipolar Disorder, Hx Suicide Attempt - Cut Wrists, Hx Substance Abuse Denies: Hx Eating Disorder, Hx of Violent Episodes Against Others - Surgical History Surgery Procedure, Year, and Place: csection x2, vaginal reconstruction Infectious Disease History: No Infectious Disease History: Denies: Hx Hepatitis, Hx Human Immunodeficiency Virus (HIV), Traveled Outside the [place] in Last 30 Days - Family History Known Family History: Positive: Cardiac Disease - CHF, Other - Colon CA, prostate CA Family History: Two brothers who have committed suicide. - Social History Alcohol Use: Daily Hx Substance Use: No Substance Use Type: Reports: Prescribed Hx Tobacco Use: Yes Smoking Status (MU): Current Every Day Smoker Type: Cigarettes Amount Used/How Often: < 1 PPD Length of Time of Smoking/Using Tobacco: Since age 16 Have You Smoked in the Last Year: Yes Review of Systems Negative: Fever Positive: Depressed All Other Systems Reviewed And Are Negative: Yes Physical Exam - Summary Physical Exam Summary: Appearance: Well-appearing, Well-nourished, lying in bed comfortably Skin: Warm, dry, no obvious rash Eyes: sclera anicteric, no conjunctival pallor ENT: mucous membranes moist, pharynx appears normal Neck: Supple, nontender Respiratory: Clear to auscultation, no signs of respiratory distress Cardiovascular: Normal S1, S2. No murmurs. Normal distal pulses in tibial and radial bilaterally. Abdomen: Soft, nontender, normal active bowel sounds present Musculoskeletal: RA in bilateral MCP joints, Strength/ROM Intact Neurological: A&Ox3, awake and alert, mentation is normal, speech is fluent and appropriate Psychiatric: affect is normal, does not appear anxious or depressed Triage Information Reviewed: Yes Vital Signs On Initial Exam: Initial Vitals Temp Pulse Resp BP Pulse Ox 98.0 F 79 18 161/93 100 08/06/18 18:36 08/06/18 18:36 08/06/18 18:36 08/06/18 18:36 08/06/18 18:36 Vital Signs Reviewed: Yes Diagnostics - Vital Signs Vital Signs Temp Pulse Resp BP Pulse Ox 08/06/18 18:36 98.0 F 79 18 161/93 100 - Laboratory Result Diagrams: 08/06/18 20:15 08/06/18 20:15 Lab Statement: Any lab studies that have been ordered have been reviewed, and results considered in the medical decision making process. Course/Dx - Course Course Of Treatment: 57 year old F presenting to [facility] with a chief complaint of hopelessness and helplessness and states she would like to stop taking hydrocodone for her RA. She admits to abusing her prescription and states she takes her hydrocodone at triple the prescribed dose. She denies current SI and expresses no desire to harm herself. Bloodwork and toxicology is obtained and patient is cleared for mental health evaluation. Patient is given nicotine gum and inhaler. Informed by mental health supervisor cd area that Dr. Simmons would like a Brain CT ordered prior to patients admission. - Differential Dx/Clinical Impression Provider Diagnosis: Substance induced mood disorder Discharge - Sign-Out/Discharge Documenting (check all that apply): Patient Departure - admit - Discharge Plan Condition: Fair Disposition: [place]R[place] [place] Billing Disposition and Condition Condition: FAIR Disposition: Psychiatric [place] [facility] [place] - Attestation Statements Document Initiated by Scribe: Yes Documenting Scribe: Maya Coppola Provider For Whom Gianni is Documenting (Include Credential): Malvin Bravo MD Scribe Attestation: Maya Garcia, scribed for Malvin Bravo MD on 08/07/18 at 1837. Scribe Documentation Reviewed: Yes Provider Attestation: The documentation as recorded by the Maya reece accurately reflects the service I personally performed and the decisions made by Malvin elkins MD Status of Scribe Document: Viewed
[2018-08-06 20:14] LABS: Urine Appearance Clear; Urine Bilirubin Negative (Negative); Urine Blood Negative (Negative); Urine Color Colorless; Urine Glucose Negative (Negative); Urine Ketones Negative (Negative); Urine Nitrite Negative (Negative); Urine Protein Negative (Negative); Urine Specific Gravity 1.001 (1.010-1.030); Urine Urobilinogen Negative (Negative)
[2018-08-06 20:21] LABS: ABS Basophils 0 10^3/ul (0-0.2); ABS Eosinophils 0 10^3/ul (0-0.6); ABS Lymphocytes 1.1 10^3/ul (1.0-4.8); ABS Monocytes 0.5 10^3/ul (0-0.8); ABS Neutrophils 2.9 10^3/ul (1.5-7.7); ABS Nucleated RBC 0 10^3/ul; Eosinophil % 0.8 %; Hematocrit 37 % (35-47); Hemoglobin 12.6 g/dl (12.0-16.0); Lymphocyte % 23.8 %; Mean Corpuscular HGB Conc 34 g/dl (31-36); Mean Corpuscular Hemoglobin 34 pg (27-31); Mean Corpuscular Volume 98 fL (80-97); Mean Platelet Volume 7.6 fL (7.4-10.4); Nucleated Red Blood Cells % 0.1; Platelet Count 277 10^3/ul (150-450); Red Blood Count 3.75 10^6/ul (4.00-5.40); Red Cell Distribution Width 14 % (10.5-15); White Blood Count 4.5 10^3/ul (3.5-10.8)
[2018-08-06 20:37] LABS: Barbiturates Urine Screen None Detected (None Detect); Benzodiazepine Urine Screen None Detected (None Detect); Urine Cannabinoids Screen None Detected (None Detect)
[2018-08-06 20:41] LABS: ALT 13 U/L (7-52); AST 14 U/L (13-39); Albumin 4.5 g/dL (3.2-5.2); Albumin/Globulin Ratio 1.6 (1-3); Alkaline Phosphatase 56 U/L (34-104); Anion Gap 7 mmol/L (2-11); BUN/Creatinine Ratio 17.6 (8-20); Blood Urea Nitrogen 12 mg/dL (6-24); CO2 Carbon Dioxide 30 mmol/L (22-32); Calcium 9.6 mg/dL (8.6-10.3); Chloride 97 mmol/L (101-111); EGFR African American 108.3 (>60); EGFR Non-African American 89.5 (>60); Globulin 2.8 g/dL (2-4); Glucose 130 mg/dL (70-100); Potassium 3.6 mmol/L (3.5-5.0); Sodium 134 mmol/L (135-145); Total Protein 7.3 g/dL (6.4-8.9)
[2018-08-06 21:03] LABS: Acetaminophen < 15 mcg/mL; Alcohol < 10 mg/dL (<10); Salicylate < 2.50 mg/dL (<30)
[2018-08-06 21:17] LABS: TSH (Thyroid Stimulating Horm) 1.75 mcIU/mL (0.34-5.60)
[2018-08-07] MEDS ORDERED: Nicotine Inhaler* 10 MG AMP INH PRN (01:23)
[2018-08-07] MEDS ORDERED: Al Hydrox/Mg Hydrox/Simet LIQ* 30 ML UDC PO PRN (01:23)
[2018-08-07] MEDS ORDERED: Mouth Piece, Nicotine* 1 EACH CARTRIDGE INH SCH (01:23)
[2018-08-07] MEDS ORDERED: Nicotine GUM* 2 MG PO PRN (01:23)
[2018-08-07 07:22] LABS: HDL Cholesterol 56.2 mg/dL
[2018-08-07] MEDS: Hydroxychloroquine TAB* 200 MG PO SCH ×2 (09:29→20:21)
[2018-08-07] MEDS: Vitamin THERAPEUTIC TAB PO SCH (09:29)
[2018-08-07] MEDS: Atenolol TAB* 50 MG PO SCH ×2 (09:29→20:21)
[2018-08-07] MEDS: Folic Acid TAB* 1 MG PO SCH (09:29)
[2018-08-07] MEDS: OMEGA ACID ETHYL ESTERS PO SCH ×2 (09:30→19:45)
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
[2018-08-07] MEDS: QUEtiapine TAB* 100 MG PO SCH (20:21)
[2018-08-07] MEDS: hydrOXYzine HCL TAB* 50 MG PO PRN (20:48)
[2018-08-07] MEDS: Acetaminophen TAB* 325 MG PO PRN (20:48)
[2018-08-08] MEDS: hydrOXYzine HCL TAB* 50 MG PO PRN ×3 (07:09→20:41)
[2018-08-08] MEDS: Acetaminophen TAB* 325 MG PO PRN ×3 (07:09→20:37)
[2018-08-08] MEDS: Hydroxychloroquine TAB* 200 MG PO SCH ×2 (08:50→20:41)
[2018-08-08] MEDS: Atenolol TAB* 50 MG PO SCH ×2 (08:50→20:40)
[2018-08-08] MEDS: OMEGA ACID ETHYL ESTERS PO SCH (08:51)
[2018-08-08] MEDS: Vitamin THERAPEUTIC TAB PO SCH (08:51)
[2018-08-08] MEDS: Folic Acid TAB* 1 MG PO SCH (08:51)
[2018-08-08] MEDS: QUEtiapine TAB* 100 MG PO SCH (20:40)
[2018-08-08] MEDS: OMEGA-3 FATTY ACIDS (NF) 1,000 MG CAP PO SCH (20:41)
[2018-08-09] MEDS: Hydroxychloroquine TAB* 200 MG PO SCH ×2 (07:54→20:50)
[2018-08-09] MEDS: Vitamin THERAPEUTIC TAB PO SCH (07:54)
[2018-08-09] MEDS: Folic Acid TAB* 1 MG PO SCH (07:54)
[2018-08-09] MEDS: OMEGA-3 FATTY ACIDS (NF) 1,000 MG CAP PO SCH (07:54)
[2018-08-09] MEDS: Atenolol TAB* 50 MG PO SCH ×2 (11:10→20:50)
[2018-08-09] MEDS: Lithium Carbonate TAB* 300 MG PO SCH ×2 (13:17→20:50)
[2018-08-09] MEDS: hydrOXYzine HCL TAB* 50 MG PO PRN (15:29)
[2018-08-09] MEDS: Acetaminophen TAB* 325 MG PO PRN (15:29)
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
--- NOTE | 2018-08-09 19:38 | PN ---
Hospitalist Progress Note Date of Service: 08/09/18 S: Pt is 57 yo female PMH depression, chronic opioid use, alcohol abuse, rheumatoid arthritis on weekly methotrexate. Medicine service consulted for boil. Pt applied hot water on the boil today. Denies Hx of MRSA. O: PE: ambulating, following commands left upper thigh with 4 cm diameter erythema with skin tear near popped boil. no induration. A/P. superficial skin boil with erythema but no induration after application of hot water. Reasonable to apply topical bactroban and monitor daily. If worsens could consider keflex 500mg po QID or doxycycline 100mg BID.
[2018-08-09] MEDS: CMCS: OMEGA-3 FATTY ACIDS (NF) 1,000 MG CAP PO SCH (20:50)
[2018-08-09] MEDS: QUEtiapine TAB* 100 MG PO SCH (20:50)
[2018-08-09] MEDS: QUEtiapine TAB* 300 MG PO SCH (20:51)
[2018-08-09] MEDS: Mupirocin 2% OINT* TUBE TOPICAL SCH (20:52)
[2018-08-09] MEDS ORDERED: QUEtiapine TAB* 300 MG PO SCH (21:00)
[2018-08-10] MEDS: Acetaminophen TAB* 325 MG PO PRN ×3 (04:11→21:06)
[2018-08-10] MEDS: hydrOXYzine HCL TAB* 50 MG PO PRN ×3 (04:11→21:06)
[2018-08-10] MEDS: CMCS: OMEGA-3 FATTY ACIDS (NF) 1,000 MG CAP PO SCH ×2 (08:51→21:07)
[2018-08-10] MEDS: Lithium Carbonate TAB* 300 MG PO SCH ×2 (08:52→21:05)
[2018-08-10] MEDS: Folic Acid TAB* 1 MG PO SCH (08:52)
[2018-08-10] MEDS: Hydroxychloroquine TAB* 200 MG PO SCH ×2 (08:52→21:05)
[2018-08-10] MEDS: Vitamin THERAPEUTIC TAB PO SCH (08:52)
[2018-08-10] MEDS: Atenolol TAB* 50 MG PO SCH ×2 (08:53→21:05)
[2018-08-10] MEDS: Mupirocin 2% OINT* TUBE TOPICAL SCH ×2 (08:53→21:08)
--- NOTE | 2018-08-10 11:43 | PN ---
MHU: Group Therapy Note - Service Type Service Type: [id number] Group Psychotherapy - Cognitive Behavioral Group Therapy ( CBT):Patient was attentive and participatory in CBT programming this morning, and remained in good behavioral control. Patient expressed positive insights regarding relevant treatment interventions and goals.
--- NOTE | 2018-08-10 13:10 | PN ---
Subjective - Subjective Date of Service: 08/10/18 Service Type: 35268 Hosp care 15 min low complexity Subjective: patient presents with elevated mood and bright affect. she reports some improvement in energy and sleep. she denies pain and is circumstantial about prior hospitalizations wherein she wasn't "honest" about opiate pain med use. She agrees to continue with current medication regimen and assess lithium level on am of 08/12/18. Objective - Appearance Appearance: Well Developed/Nourished Dysmorphic Features: No Hygiene: Normal Grooming: Well Kept - Behavior Psychomotor Activities: Normal Exhibits Abnormal Movement: No - Attitude and Relatedness Attitude and Relatedness: Cooperative Eye Contact: Fair - Speech Quality: Pressured Latencies: Normal Quantity: Copious - Mood Patient's Decription of Mood: "Good" - Affect Observed Affect: Expansive Affect Consistent with: Euphoria - Thought Process Patient's Thought Process: Loose Associations, Circumstantial, Over Inclusive Thought Content: No Passive Wish, No Suicidal Planning, No Homicidal Ideation, No Paranoid Ideation - Sensorium Experiencing Hallucinations: No, Sensorium is Clear Type of Hallucinations: Visual: No, Auditory: No, Command: No - Level of Consciousness Level of Consciousness: Alert Orientation: Yes Intact, Yes Orientated to Time, Yes Orientated to Place, Yes Orientated to Person - Impulse Control Impulse Control: Intact - Insight and Judgement Insight and Judgement: Poor - Group Participation Particating in Group Activities: Yes - Medication Management Medication Management Adherence: Yes Assessment - Assessment Merits Inpatient Hospitalization: For Immediate Safety, For Stabilization, Consolidate Improvements Inpatient DSM-V Dx: F31.10 Clinical Impression: 57yo wf with known history of bipolar disorder and trauma, who presents with jackson and request for treatment for alcohol and opiate dependence. She is currently unable to care for self and merits psychiatric stabilization prior to substance use treatment referrals. Plan - Plan Treatment Plan: Name: MARTIN SEGOVIA Birthdate: 1960 [id number] continue acute intentsive psychiatric treatment. may decrease to q30min. increase quetiapine to 800mg qhs. continue other medications. obtain lithium level on am of 08/12/18 discharge planning to include substance use treatment referrals after psychiatrically stabilized. Continued Medication Management: Start Medication Medications: Current Medications Acetaminophen (Tylenol Tab*) 650 mg PO Q4H PRN PRN Reason: PAIN or TEMP > 101 F Last Admin: 08/10/18 04:11 Dose: 650 mg Al Hydrox/Mg Hydrox/Simethicone (Maalox Plus*) 30 ml PO Q4H PRN PRN Reason: INDIGESTION Last Admin: 08/07/18 20:50 Dose: 30 ml Atenolol (Tenormin Tab*) 50 mg PO BID [facility] Last Admin: 08/10/18 08:53 Dose: 50 mg Fish Oil (Fish Oil (Nf)) 1,000 mg PO 0900,2100 [facility] Last Admin: 08/10/18 08:51 Dose: 1,000 mg Folic Acid (Folvite Tab*) 1 mg PO DAILY [facility] Last Admin: 08/10/18 08:52 Dose: 1 mg Hydroxychloroquine Sulfate (Plaquenil Tab*) 200 mg PO BID [facility] Last Admin: 08/10/18 08:52 Dose: 200 mg Hydroxyzine HCl (Atarax Tab*) 50 mg PO Q4H PRN PRN Reason: ANXIETY Last Admin: 08/10/18 04:11 Dose: 50 mg [place] Carbonate ([place] Carbonate Tab*) 300 mg PO BID [facility] Last Admin: 08/10/18 08:52 Dose: 300 mg Multivitamins (Theragran Tab*) 1 tab PO DAILY [facility] Last Admin: 08/10/18 08:52 Dose: 1 tab Mupirocin (Bactroban 2 % Oint*) 1 applic TOPICAL BID [facility] Last Admin: 08/10/18 08:53 Dose: 1 applic Quetiapine Fumarate (Seroquel Tab*) 600 mg PO BEDTIME [facility] Last Admin: 08/09/18 20:51 Dose: 600 mg Quetiapine Fumarate (Seroquel Tab*) 200 mg PO BEDTIME [facility] Last Admin: 08/09/18 20:50 Dose: 200 mg - Discharge Plan Discharge Plan: Inpatient Hospitalization
[2018-08-10] MEDS: QUEtiapine TAB* 300 MG PO SCH (21:05)
[2018-08-10] MEDS: QUEtiapine TAB* 100 MG PO SCH (21:05)
[2018-08-11] MEDS: hydrOXYzine HCL TAB* 50 MG PO PRN ×2 (06:42→17:53)
[2018-08-11] MEDS: Acetaminophen TAB* 325 MG PO PRN ×3 (06:42→21:30)
[2018-08-11] MEDS: Atenolol TAB* 50 MG PO SCH ×2 (09:55→21:23)
[2018-08-11] MEDS: Lithium Carbonate TAB* 300 MG PO SCH ×2 (09:55→21:18)
[2018-08-11] MEDS: Vitamin THERAPEUTIC TAB PO SCH (09:55)
[2018-08-11] MEDS: Hydroxychloroquine TAB* 200 MG PO SCH ×2 (09:55→21:24)
[2018-08-11] MEDS: CMCS: OMEGA-3 FATTY ACIDS (NF) 1,000 MG CAP PO SCH ×2 (09:55→21:25)
[2018-08-11] MEDS: Folic Acid TAB* 1 MG PO SCH (09:55)
--- NOTE | 2018-08-11 10:49 | PN ---
Subjective - Subjective Date of Service: 08/12/18 Service Type: 34229 Hosp care 15 min low complexity Subjective: Martin continues to be pleasant but intrusive and disorganized. She takes copious notes during groups and is very active on the unit. She is notified of lithium level and agrees to increase HS dose. she is tearful Objective - Appearance Appearance: Well Developed/Nourished Dysmorphic Features: Yes Hygiene: Normal Grooming: Disheveled - Behavior Psychomotor Activities: Abnormal-Increased - bilat hand tremor Exhibits Abnormal Movement: Yes - Attitude and Relatedness Attitude and Relatedness: Cooperative Eye Contact: Fair - Speech Quality: Pressured Latencies: Normal Quantity: Copious - Mood Patient's Decription of Mood: "Okay" - Affect Observed Affect: Labile Affect Consistent with: Euphoria - Thought Process Patient's Thought Process: Loose Associations, Tangential, Over Inclusive Thought Content: No Passive Wish, No Suicidal Planning, No Homicidal Ideation, No Paranoid Ideation - Sensorium Experiencing Hallucinations: No, Sensorium is Clear Type of Hallucinations: Visual: No, Auditory: No, Command: No - Level of Consciousness Level of Consciousness: Alert Orientation: Yes Intact, Yes Orientated to Time, Yes Orientated to Place, Yes Orientated to Person - Impulse Control Impulse Control: Poor - Insight and Judgement Insight and Judgement: Poor - Group Participation Particating in Group Activities: Yes - Medication Management Medication Management Adherence: Yes Assessment - Assessment Merits Inpatient Hospitalization: For Immediate Safety, For Stabilization Inpatient DSM-V Dx: F31.10 Clinical Impression: 57yo wf with known history of bipolar disorder and trauma, who presents with jackson and request for treatment for alcohol and opiate dependence. She is currently unable to care for self and merits psychiatric stabilization prior to substance use treatment referrals. Plan - Plan Treatment Plan: Name: MARTIN Stoner REDDICK Birthdate: 1960 [id number] continue acute intentsive psychiatric treatment. may decrease to q30min. increase lithium HS dose, change atenolol to propranolol for hand tremor. discharge planning to include substance use treatment referrals after psychiatrically stabilized. Continued Medication Management: Start Medication Medications: Current Medications Acetaminophen (Tylenol Tab*) 650 mg PO Q4H PRN PRN Reason: PAIN or TEMP > 101 F Last Admin: 08/11/18 06:42 Dose: 650 mg Al Hydrox/Mg Hydrox/Simethicone (Maalox Plus*) 30 ml PO Q4H PRN PRN Reason: INDIGESTION Last Admin: 08/07/18 20:50 Dose: 30 ml Atenolol (Tenormin Tab*) 50 mg PO BID [facility] Last Admin: 08/11/18 09:55 Dose: 50 mg Fish Oil (Fish Oil (Nf)) 1,000 mg PO 0900,2100 [facility] Last Admin: 08/11/18 09:55 Dose: 1,000 mg Folic Acid (Folvite Tab*) 1 mg PO DAILY [facility] Last Admin: 08/11/18 09:55 Dose: 1 mg Hydroxychloroquine Sulfate (Plaquenil Tab*) 200 mg PO BID [facility] Last Admin: 08/11/18 09:55 Dose: 200 mg Hydroxyzine HCl (Atarax Tab*) 50 mg PO Q4H PRN PRN Reason: ANXIETY Last Admin: 08/11/18 06:42 Dose: 50 mg [place] Carbonate ([place] Carbonate Tab*) 300 mg PO BID [facility] Last Admin: 08/11/18 09:55 Dose: 300 mg Multivitamins (Theragran Tab*) 1 tab PO DAILY [facility] Last Admin: 08/11/18 09:55 Dose: 1 tab Mupirocin (Bactroban 2 % Oint*) 1 applic TOPICAL BID [facility] Last Admin: 08/10/18 21:08 Dose: 1 applic Quetiapine Fumarate (Seroquel Tab*) 600 mg PO BEDTIME [facility] Last Admin: 08/10/18 21:05 Dose: 600 mg Quetiapine Fumarate (Seroquel Tab*) 200 mg PO BEDTIME [facility] Last Admin: 08/10/18 21:05 Dose: 200 mg - Discharge Plan Discharge Plan: Inpatient Hospitalization
[2018-08-11] MEDS: Mupirocin 2% OINT* TUBE TOPICAL SCH ×2 (11:29→21:23)
--- NOTE | 2018-08-11 12:50 | PN ---
MHU: Group Therapy Note - Service Type Service Type: [id number] Group Psychotherapy - Cognitive Behavioral Group Therapy ( CBT):Patient was attentive and participatory in CBT programming this morning, and remained in good behavioral control. Patient expressed positive insights regarding relevant treatment interventions and goals.
[2018-08-11] MEDS: Nicotine Inhaler* 10 MG AMP INH PRN (17:53)
[2018-08-11] MEDS ORDERED: Mouth Piece, Nicotine* 1 EACH CARTRIDGE INH ONE (18:00)
[2018-08-11] MEDS: QUEtiapine TAB* 300 MG PO SCH (21:17)
[2018-08-11] MEDS: QUEtiapine TAB* 100 MG PO SCH (21:18)
[2018-08-12] MEDS: Folic Acid TAB* 1 MG PO SCH (10:44)
[2018-08-12] MEDS: Vitamin THERAPEUTIC TAB PO SCH (10:44)
[2018-08-12] MEDS: CMCS: OMEGA-3 FATTY ACIDS (NF) 1,000 MG CAP PO SCH ×2 (10:45→20:46)
[2018-08-12] MEDS: Hydroxychloroquine TAB* 200 MG PO SCH ×2 (10:46→20:45)
[2018-08-12] MEDS: Mupirocin 2% OINT* TUBE TOPICAL SCH ×2 (10:46→20:54)
[2018-08-12] MEDS: Acetaminophen TAB* 325 MG PO PRN ×2 (10:49→20:51)
[2018-08-12] MEDS: hydrOXYzine HCL TAB* 50 MG PO PRN ×2 (10:49→20:52)
[2018-08-12] MEDS: Atenolol TAB* 50 MG PO SCH (10:52)
[2018-08-12] MEDS: Lithium Carbonate TAB* 300 MG PO SCH ×2 (10:53→20:45)
[2018-08-12] MEDS ORDERED: Propranolol TAB* 60 MG PO ONE (11:37)
[2018-08-12] MEDS ORDERED: Lithium Carbonate TAB* 300 MG PO ONE (11:37)
--- NOTE | 2018-08-12 12:08 | PN ---
MHU: Group Therapy Note - Service Type Service Type: [id number] Group Psychotherapy - Cognitive Behavioral Group Therapy ( CBT):Patient was attentive and participatory in CBT programming this morning, and remained in good behavioral control. Patient expressed positive insights regarding relevant treatment interventions and goals.
--- NOTE | 2018-08-12 14:12 | PN ---
Subjective - Subjective Date of Service: 08/12/18 Service Type: 61309 Hosp care 25 min moderate complexity Subjective: Patient informed of subtherapeutic lithium level. She reports history of feeling "ill" when on an higher dose but cannot recall the specific. She agrees to increase HS dose to 600mg. She reports increase in hand tremor. Her speech is pressured and she is tearful when she goes on to discuss how a particular peer reminds her of her late brother who suicided. She is receptive to validation and therapeutic presence. Objective - Appearance Appearance: Well Developed/Nourished Dysmorphic Features: Yes Hygiene: Normal Grooming: Well Kept - Behavior Psychomotor Activities: Normal Exhibits Abnormal Movement: No - Attitude and Relatedness Attitude and Relatedness: Cooperative Eye Contact: Fair - Speech Quality: Pressured Latencies: Normal Quantity: Copious - Mood Patient's Decription of Mood: "Sad" - Affect Observed Affect: Labile Affect Consistent with: Euphoria - Thought Process Patient's Thought Process: Loose Associations, Over Inclusive Thought Content: No Passive Wish, No Suicidal Planning, No Homicidal Ideation, No Paranoid Ideation - Sensorium Experiencing Hallucinations: No, Sensorium is Clear Type of Hallucinations: Visual: No, Auditory: No, Command: No - Level of Consciousness Level of Consciousness: Alert Orientation: Yes Intact, Yes Orientated to Time, Yes Orientated to Place, Yes Orientated to Person - Impulse Control Impulse Control: Tenuous - Insight and Judgement Insight and Judgement: Fair - Group Participation Particating in Group Activities: Yes - Medication Management Medication Management Adherence: Yes Assessment - Assessment Merits Inpatient Hospitalization: For Immediate Safety, For Stabilization Inpatient DSM-V Dx: F31.10 Clinical Impression: 57yo wf with known history of bipolar disorder and trauma, who presents with jackson and request for treatment for alcohol and opiate dependence. She is currently unable to care for self and merits psychiatric stabilization prior to substance use treatment referrals. Plan - Plan Treatment Plan: Name: MARTIN SEGOVIA Birthdate: 1960 [id number] continue acute intentsive psychiatric treatment. may decrease to q30min. may allow staff pass. increase HS dose of lithium, change atenolol to propranolol for hand tremor. discharge planning to include substance use treatment referrals after psychiatrically stabilized. Continued Medication Management: Continue Outpt Medication Medications: Current Medications Acetaminophen (Tylenol Tab*) 650 mg PO Q4H PRN PRN Reason: PAIN or TEMP > 101 F Last Admin: 08/12/18 10:49 Dose: 650 mg Al Hydrox/Mg Hydrox/Simethicone (Maalox Plus*) 30 ml PO Q4H PRN PRN Reason: INDIGESTION Last Admin: 08/07/18 20:50 Dose: 30 ml Fish Oil (Fish Oil (Nf)) 1,000 mg PO 0900,2100 [facility] Last Admin: 08/12/18 10:45 Dose: 1,000 mg Folic Acid (Folvite Tab*) 1 mg PO DAILY [facility] Last Admin: 08/12/18 10:44 Dose: 1 mg Hydroxychloroquine Sulfate (Plaquenil Tab*) 200 mg PO BID [facility] Last Admin: 08/12/18 10:46 Dose: 200 mg Hydroxyzine HCl (Atarax Tab*) 50 mg PO Q4H PRN PRN Reason: ANXIETY Last Admin: 08/12/18 10:49 Dose: 50 mg Goff Carbonate (Goff Carbonate Tab*) 600 mg PO BEDTIME [facility] Goff Carbonate (Goff Carbonate Tab*) 300 mg PO DAILY [facility] Multivitamins (Theragran Tab*) 1 tab PO DAILY [facility] Last Admin: 08/12/18 10:44 Dose: 1 tab Mupirocin (Bactroban 2 % Oint*) 1 applic TOPICAL BID [facility] Last Admin: 08/12/18 10:46 Dose: 1 applic Nicotine (Nicotine Inhaler*) 10 mg INH Q2H PRN PRN Reason: CRAVING Last Admin: 08/11/18 17:53 Dose: 10 mg Propranolol HCl (Inderal Tab*) 60 mg PO BID [facility] Quetiapine Fumarate (Seroquel Tab*) 600 mg PO BEDTIME [facility] Last Admin: 08/11/18 21:17 Dose: 600 mg Quetiapine Fumarate (Seroquel Tab*) 200 mg PO BEDTIME [facility] Last Admin: 08/11/18 21:18 Dose: 200 mg - Discharge Plan Discharge Plan: Inpatient Hospitalization
[2018-08-12] MEDS: Propranolol TAB* 60 MG PO SCH (20:46)
[2018-08-12] MEDS: QUEtiapine TAB* 300 MG PO SCH (20:47)
[2018-08-12] MEDS: QUEtiapine TAB* 100 MG PO SCH (20:47)
[2018-08-12] MEDS: Nicotine Inhaler* 10 MG AMP INH PRN (21:13)
[2018-08-13] MEDS: Acetaminophen TAB* 325 MG PO PRN ×3 (04:37→20:33)
[2018-08-13] MEDS: hydrOXYzine HCL TAB* 50 MG PO PRN ×2 (04:37→09:58)
[2018-08-13] MEDS ORDERED: Mouth Piece, Nicotine* 1 EACH CARTRIDGE ONE (09:56)
[2018-08-13] MEDS: Folic Acid TAB* 1 MG PO SCH (09:58)
[2018-08-13] MEDS: Propranolol TAB* 60 MG PO SCH ×2 (09:58→20:27)
[2018-08-13] MEDS: Hydroxychloroquine TAB* 200 MG PO SCH ×2 (09:58→20:25)
[2018-08-13] MEDS: CMCS: OMEGA-3 FATTY ACIDS (NF) 1,000 MG CAP PO SCH ×2 (09:58→20:26)
[2018-08-13] MEDS: Vitamin THERAPEUTIC TAB PO SCH (09:58)
[2018-08-13] MEDS: Lithium Carbonate TAB* 300 MG PO SCH ×2 (09:58→20:26)
[2018-08-13] MEDS: Nicotine Inhaler* 10 MG AMP INH PRN (09:59)
[2018-08-13] MEDS: Mupirocin 2% OINT* TUBE TOPICAL SCH ×2 (09:59→22:41)
--- NOTE | 2018-08-13 11:21 | PN ---
MHU: Group Therapy Note - Service Type Service Type: [id number] Group Psychotherapy - Cognitive Behavioral Group Therapy ( CBT):Patient was attentive and participatory in CBT programming this morning, and remained in good behavioral control. Patient expressed positive insights regarding relevant treatment interventions and goals.
--- NOTE | 2018-08-13 15:41 | PN ---
Subjective - Subjective Date of Service: 08/13/18 Service Type: [id number] Hosp care 25 min moderate complexity Subjective: Patient inquires about BID dosing of quetiapine for improved mood stabilization. She agrees to trial XR formulation to prevent daytime sedation. She goes on to discuss multiple plans for herself post discharge, including waking early and going to an AA meeting, volunteering at various places. She then discusses past experiences at [facility] and is considering various facilities. She is receptive to suggestion to treat jackson prior to making referrals. Patient is participatory in groups, often needing redirection when over-inclusive or discussing trauma. She changes clothing multiple times daily. Objective - Appearance Appearance: Well Developed/Nourished Dysmorphic Features: No Hygiene: Normal Grooming: Disheveled - Behavior Psychomotor Activities: Abnormal-Increased - hyperactivity Exhibits Abnormal Movement: No - Attitude and Relatedness Attitude and Relatedness: Cooperative Eye Contact: Fair - Speech Quality: Pressured Latencies: Normal Quantity: Copious - Mood Patient's Decription of Mood: "Okay" - Affect Observed Affect: Expansive Affect Consistent with: Euphoria - Thought Process Patient's Thought Process: Loose Associations, Over Inclusive Thought Content: No Passive Wish, No Suicidal Planning, No Homicidal Ideation, No Paranoid Ideation - Sensorium Experiencing Hallucinations: No, Sensorium is Clear Type of Hallucinations: Visual: No, Auditory: No, Command: No - Level of Consciousness Level of Consciousness: Alert Orientation: Yes Intact, Yes Orientated to Time, Yes Orientated to Place, Yes Orientated to Person - Impulse Control Impulse Control: Impaired - Insight and Judgement Insight and Judgement: Poor - Group Participation Particating in Group Activities: Yes - Medication Management Medication Management Adherence: Yes Assessment - Assessment Merits Inpatient Hospitalization: For Immediate Safety, For Stabilization, Consolidate Improvements Inpatient DSM-V Dx: F31.10 Clinical Impression: 57yo wf with known history of bipolar disorder and trauma, who presents with jackson and request for treatment for alcohol and opiate dependence. She is currently unable to care for self and merits psychiatric stabilization prior to substance use treatment referrals. Plan - Plan Treatment Plan: Name: MARTIN SEGOVIA Birthdate: 1960 [id number] continue acute intentsive psychiatric treatment. may decrease to q30min. may allow staff pass. change quetiapine formulation to XR. recheck lithium level on am of 08/16/18. discharge planning to include substance use treatment referrals after psychiatrically stabilized. Continued Medication Management: Start Medication Medications: Current Medications Acetaminophen (Tylenol Tab*) 650 mg PO Q4H PRN PRN Reason: PAIN or TEMP > 101 F Last Admin: 08/13/18 09:57 Dose: 650 mg Al Hydrox/Mg Hydrox/Simethicone (Maalox Plus*) 30 ml PO Q4H PRN PRN Reason: INDIGESTION Last Admin: 08/07/18 20:50 Dose: 30 ml Fish Oil (Fish Oil (Nf)) 1,000 mg PO 0900,2100 [facility] Last Admin: 08/13/18 09:58 Dose: 1,000 mg Folic Acid (Folvite Tab*) 1 mg PO DAILY [facility] Last Admin: 08/13/18 09:58 Dose: 1 mg Hydroxychloroquine Sulfate (Plaquenil Tab*) 200 mg PO BID [facility] Last Admin: 08/13/18 09:58 Dose: 200 mg Hydroxyzine HCl (Atarax Tab*) 50 mg PO Q4H PRN PRN Reason: ANXIETY Last Admin: 08/13/18 09:58 Dose: 50 mg [place] Carbonate (Astoria Carbonate Tab*) 600 mg PO BEDTIME [facility] Last Admin: 08/12/18 20:45 Dose: 600 mg [place] Carbonate (Astoria Carbonate Tab*) 300 mg PO DAILY [facility] Last Admin: 08/13/18 09:58 Dose: 300 mg Multivitamins (Theragran Tab*) 1 tab PO DAILY [facility] Last Admin: 08/13/18 09:58 Dose: 1 tab Mupirocin (Bactroban 2 % Oint*) 1 applic TOPICAL BID [facility] Last Admin: 08/13/18 09:59 Dose: Not Given Nicotine (Nicotine Inhaler*) 10 mg INH Q2H PRN PRN Reason: CRAVING Last Admin: 08/13/18 09:59 Dose: 10 mg Propranolol HCl (Inderal Tab*) 60 mg PO BID [facility] Last Admin: 08/13/18 09:58 Dose: 60 mg Quetiapine Fumarate (Seroquel Tab*) 600 mg PO BEDTIME [facility] Last Admin: 08/12/18 20:47 Dose: 600 mg Quetiapine Fumarate (Seroquel Tab*) 200 mg PO BEDTIME [facility] Last Admin: 08/12/18 20:47 Dose: 200 mg - Discharge Plan Discharge Plan: Inpatient Hospitalization
[2018-08-13] MEDS: QUEtiapine XR TAB* 300 MG PO SCH (20:28)
[2018-08-13] MEDS: QUEtiapine XR TAB* 200 MG PO SCH (20:28)
[2018-08-14] MEDS: Vitamin THERAPEUTIC TAB PO SCH (09:01)
[2018-08-14] MEDS: CMCS: OMEGA-3 FATTY ACIDS (NF) 1,000 MG CAP PO SCH ×2 (09:01→21:03)
[2018-08-14] MEDS: Lithium Carbonate TAB* 300 MG PO SCH ×2 (09:01→21:03)
[2018-08-14] MEDS: Folic Acid TAB* 1 MG PO SCH (09:01)
[2018-08-14] MEDS: Hydroxychloroquine TAB* 200 MG PO SCH ×2 (09:01→21:03)
[2018-08-14] MEDS: Propranolol TAB* 60 MG PO SCH ×2 (09:01→21:03)
[2018-08-14] MEDS: Nicotine Inhaler* 10 MG AMP INH PRN (09:44)
[2018-08-14] MEDS: Mupirocin 2% OINT* TUBE TOPICAL SCH ×2 (09:45→21:04)
[2018-08-14] MEDS ORDERED: Methotrexate TAB* 2.5 MG PO ONE ×2 (14:17→16:00)
[2018-08-14] MEDS: QUEtiapine XR TAB* 300 MG PO SCH (21:02)
[2018-08-14] MEDS: Docusate CAP* 100 MG PO SCH (21:03)
[2018-08-14] MEDS: QUEtiapine XR TAB* 200 MG PO SCH (21:03)
[2018-08-14] MEDS: Acetaminophen TAB* 325 MG PO PRN (21:05)
[2018-08-15] MEDS: Lithium Carbonate TAB* 300 MG PO SCH ×2 (08:46→20:27)
[2018-08-15] MEDS: Folic Acid TAB* 1 MG PO SCH (08:46)
[2018-08-15] MEDS: Acetaminophen TAB* 325 MG PO PRN ×3 (08:46→20:30)
[2018-08-15] MEDS: Propranolol TAB* 60 MG PO SCH ×2 (08:46→20:28)
[2018-08-15] MEDS: CMCS: OMEGA-3 FATTY ACIDS (NF) 1,000 MG CAP PO SCH ×2 (08:46→20:28)
[2018-08-15] MEDS: Hydroxychloroquine TAB* 200 MG PO SCH ×2 (08:46→20:27)
[2018-08-15] MEDS: Vitamin THERAPEUTIC TAB PO SCH (08:46)
[2018-08-15] MEDS: Docusate CAP* 100 MG PO SCH ×2 (08:46→20:27)
[2018-08-15] MEDS: Mupirocin 2% OINT* TUBE TOPICAL SCH ×2 (11:42→20:28)
[2018-08-15] MEDS: QUEtiapine XR TAB* 300 MG PO SCH (20:27)
[2018-08-15] MEDS: QUEtiapine XR TAB* 200 MG PO SCH (20:27)
[2018-08-16] MEDS: Lithium Carbonate TAB* 300 MG PO SCH ×2 (10:23→20:31)
[2018-08-16] MEDS: Docusate CAP* 100 MG PO SCH ×2 (10:23→20:31)
[2018-08-16] MEDS: Folic Acid TAB* 1 MG PO SCH (10:23)
[2018-08-16] MEDS: Vitamin THERAPEUTIC TAB PO SCH (10:23)
[2018-08-16] MEDS: Acetaminophen TAB* 325 MG PO PRN ×3 (10:23→20:32)
[2018-08-16] MEDS: Hydroxychloroquine TAB* 200 MG PO SCH ×2 (10:24→20:31)
[2018-08-16] MEDS: Mupirocin 2% OINT* TUBE TOPICAL SCH ×2 (10:24→21:23)
[2018-08-16] MEDS: Propranolol TAB* 60 MG PO SCH ×2 (10:25→20:32)
[2018-08-16] MEDS: CMCS: OMEGA-3 FATTY ACIDS (NF) 1,000 MG CAP PO SCH ×2 (10:25→20:32)
[2018-08-16] MEDS: Nicotine Inhaler* 10 MG AMP INH PRN ×2 (11:20→16:08)
--- NOTE | 2018-08-16 11:32 | PN ---
MHU: Group Therapy Note - Service Type Service Type: [id number] Group Psychotherapy - CBT group note: Maddie was attentive and participatory in cbt programming this morning. She was interactive with a peer who she described as reminding her of both of her brothers, and processed some of her historical experiences and current concerns. She was well related with staff and peers, although remains somewhat hyperverbal.
--- NOTE | 2018-08-16 14:25 | PN ---
Subjective - Subjective Date of Service: 08/16/18 Service Type: [id number] Hosp care 25 min moderate complexity Subjective: Martin reports improvement in sleep through the night since changing to quetiapine XL. She is notified of lithium level of 0.47. She reports mild improvement in racing thoughts. She states dislike of hydroxyzine for anxiety due to anticholinergic effects. Will trial low dose propranolol prn, in addition to scheduled dose. She is considering substance use facilities in the region. Objective - Appearance Appearance: Well Developed/Nourished Dysmorphic Features: No Hygiene: Normal Grooming: Well Kept - Behavior Psychomotor Activities: Normal Exhibits Abnormal Movement: No - Attitude and Relatedness Attitude and Relatedness: Cooperative Eye Contact: Fair - Speech Quality: Unpressured Latencies: Normal Quantity: Appropriate - Mood Patient's Decription of Mood: "Good" - Affect Observed Affect: Good Affect Consistent with: Euthymia - Thought Process Patient's Thought Process: Coherent, Goal Directed, Over Inclusive Thought Content: No Passive Wish, No Suicidal Planning, No Homicidal Ideation, No Paranoid Ideation - Sensorium Experiencing Hallucinations: No, Sensorium is Clear Type of Hallucinations: Visual: No, Auditory: No, Command: No - Level of Consciousness Level of Consciousness: Alert Orientation: Yes Intact, Yes Orientated to Time, Yes Orientated to Place, Yes Orientated to Person - Impulse Control Impulse Control: Intact - Insight and Judgement Insight and Judgement: Fair - Group Participation Particating in Group Activities: Yes - Medication Management Medication Management Adherence: Yes Assessment - Assessment Merits Inpatient Hospitalization: For Immediate Safety, For Stabilization Inpatient DSM-V Dx: F31.10 Clinical Impression: 57yo wf with known history of bipolar disorder and trauma, who presents with jackson and request for treatment for alcohol and opiate dependence. She is currently unable to care for self and merits psychiatric stabilization prior to substance use treatment referrals. Plan - Plan Treatment Plan: Name: MARTIN SEGOVIA Birthdate: 1960 [id number] continue acute intentsive psychiatric treatment. may decrease to q30min. may allow staff pass. patient declines offer for access to computer. add low dose propranolol prn for anxiety. discharge planning to include substance use treatment referrals. Continued Medication Management: Different Medication Medications: Current Medications Acetaminophen (Tylenol Tab*) 650 mg PO Q4H PRN PRN Reason: PAIN or TEMP > 101 F Last Admin: 08/16/18 10:23 Dose: 650 mg Al Hydrox/Mg Hydrox/Simethicone (Maalox Plus*) 30 ml PO Q4H PRN PRN Reason: INDIGESTION Last Admin: 08/07/18 20:50 Dose: 30 ml Docusate Sodium (Colace Cap*) 100 mg PO BID [facility] Last Admin: 08/16/18 10:23 Dose: 100 mg Fish Oil (Fish Oil (Nf)) 1,000 mg PO 0900,2100 [facility] Last Admin: 08/16/18 10:25 Dose: 1,000 mg Folic Acid (Folvite Tab*) 1 mg PO DAILY [facility] Last Admin: 08/16/18 10:23 Dose: 1 mg Hydroxychloroquine Sulfate (Plaquenil Tab*) 200 mg PO BID [facility] Last Admin: 08/16/18 10:24 Dose: 200 mg Hydroxyzine HCl (Atarax Tab*) 50 mg PO Q4H PRN PRN Reason: ANXIETY Last Admin: 08/13/18 09:58 Dose: 50 mg [place] Carbonate (Greenbelt Carbonate Tab*) 600 mg PO BEDTIME [facility] Last Admin: 08/15/18 20:27 Dose: 600 mg [place] Carbonate (Green[place] Carbonate Tab*) 300 mg PO DAILY [facility] Last Admin: 08/16/18 10:23 Dose: 300 mg Multivitamins (Theragran Tab*) 1 tab PO DAILY [facility] Last Admin: 08/16/18 10:23 Dose: 1 tab Mupirocin (Bactroban 2 % Oint*) 1 applic TOPICAL BID [facility] Last Admin: 08/16/18 10:24 Dose: Not Given Nicotine (Nicotine Inhaler*) 10 mg INH Q2H PRN PRN Reason: CRAVING Last Admin: 08/16/18 11:20 Dose: 10 mg Propranolol HCl (Inderal Tab*) 60 mg PO BID [facility] Last Admin: 08/16/18 10:25 Dose: 60 mg Quetiapine Fumarate (Seroquel Xr Tab*) 200 mg PO BEDTIME [facility] Last Admin: 08/15/18 20:27 Dose: 200 mg Quetiapine Fumarate (Seroquel Xr Tab*) 600 mg PO BEDTIME [facility] Last Admin: 08/15/18 20:27 Dose: 600 mg - Discharge Plan Discharge Plan: Drug/Alcohol Rehab Outpatient Program: [facility]
[2018-08-16] MEDS: Propranolol TAB* 10 MG PO PRN (16:07)
[2018-08-16] MEDS: QUEtiapine XR TAB* 200 MG PO SCH (20:31)
[2018-08-16] MEDS: QUEtiapine XR TAB* 300 MG PO SCH (20:32)
[2018-08-17] MEDS: Acetaminophen TAB* 325 MG PO PRN (09:27)
[2018-08-17] MEDS: Docusate CAP* 100 MG PO SCH ×2 (09:28→20:10)
[2018-08-17] MEDS: Lithium Carbonate TAB* 300 MG PO SCH ×2 (09:28→20:11)
[2018-08-17] MEDS: Folic Acid TAB* 1 MG PO SCH (09:28)
[2018-08-17] MEDS: Vitamin THERAPEUTIC TAB PO SCH (09:29)
[2018-08-17] MEDS: CMCS: OMEGA-3 FATTY ACIDS (NF) 1,000 MG CAP PO SCH ×2 (09:29→20:45)
[2018-08-17] MEDS: Mupirocin 2% OINT* TUBE TOPICAL SCH ×2 (09:29→20:12)
[2018-08-17] MEDS: Propranolol TAB* 60 MG PO SCH ×2 (09:29→20:12)
[2018-08-17] MEDS: Hydroxychloroquine TAB* 200 MG PO SCH ×2 (09:29→20:10)
[2018-08-17] MEDS: Nicotine Inhaler* 10 MG AMP INH PRN ×3 (09:32→17:56)
[2018-08-17] MEDS: Propranolol TAB* 10 MG PO PRN (13:13)
[2018-08-17] MEDS: QUEtiapine XR TAB* 200 MG PO SCH (20:12)
[2018-08-17] MEDS: QUEtiapine XR TAB* 300 MG PO SCH (20:13)
[2018-08-18] MEDS: Acetaminophen TAB* 325 MG PO PRN ×3 (09:07→20:34)
[2018-08-18] MEDS: Docusate CAP* 100 MG PO SCH ×2 (09:08→20:36)
[2018-08-18] MEDS: Lithium Carbonate TAB* 300 MG PO SCH ×2 (09:08→20:36)
[2018-08-18] MEDS: Vitamin THERAPEUTIC TAB PO SCH (09:08)
[2018-08-18] MEDS: Folic Acid TAB* 1 MG PO SCH (09:08)
[2018-08-18] MEDS: Hydroxychloroquine TAB* 200 MG PO SCH ×2 (09:08→20:37)
[2018-08-18] MEDS: Propranolol TAB* 60 MG PO SCH ×2 (09:09→20:38)
[2018-08-18] MEDS: CMCS: OMEGA-3 FATTY ACIDS (NF) 1,000 MG CAP PO SCH ×2 (09:09→20:35)
[2018-08-18] MEDS: Mupirocin 2% OINT* TUBE TOPICAL SCH ×2 (09:11→20:39)
[2018-08-18] MEDS: Propranolol TAB* 10 MG PO PRN (12:41)
[2018-08-18] MEDS: QUEtiapine XR TAB* 300 MG PO SCH (20:36)
[2018-08-18] MEDS: QUEtiapine XR TAB* 200 MG PO SCH (20:37)
[2018-08-19] MEDS: Folic Acid TAB* 1 MG PO SCH (10:12)
[2018-08-19] MEDS: Vitamin THERAPEUTIC TAB PO SCH (10:13)
[2018-08-19] MEDS: Propranolol TAB* 60 MG PO SCH (10:13)
[2018-08-19] MEDS: Lithium Carbonate TAB* 300 MG PO SCH (10:13)
[2018-08-19] MEDS: Docusate CAP* 100 MG PO SCH (10:13)
[2018-08-19] MEDS: CMCS: OMEGA-3 FATTY ACIDS (NF) 1,000 MG CAP PO SCH (10:13)
[2018-08-19] MEDS: Hydroxychloroquine TAB* 200 MG PO SCH (10:13)
[2018-08-19] MEDS: Mupirocin 2% OINT* TUBE TOPICAL SCH (10:15)
[2018-08-19] MEDS: Acetaminophen TAB* 325 MG PO PRN ×2 (10:16→13:32)
--- NOTE | 2018-08-19 11:30 | PN ---
MHU: Group Therapy Note - Service Type Service Type: [id number] Group Psychotherapy - Cognitive Behavioral Group Therapy ( CBT):Patient was attentive and participatory in CBT programming this morning, and remained in good behavioral control. Patient expressed positive insights regarding relevant treatment interventions and goals.
[2018-08-19 13:32] VITALS: BP 128/78
[2018-08-19] MEDS: Nicotine Inhaler* 10 MG AMP INH PRN ×2 (13:32→16:54)
[2018-08-19] MEDS: Propranolol TAB* 10 MG PO PRN (13:32)
--- NOTE | 2018-08-20 21:52 | DS ---
CC: [facility]; Dr. Cristina Guy; [facility] * DISCHARGE SUMMARY: DATE OF ADMISSION: 08/06/18 DATE OF DISCHARGE: 08/19/18 SUPERVISING PSYCHIATRIST: Dr. Gigi Hudson.* (DICTATED BYGIACOMO CASE NP) DIAGNOSES: 1. Bipolar I disorder, most recent episode manic. 2. Alcohol use disorder, in early remission. 3. Opiate use disorder, in early remission. CONDITION AT THE TIME OF DISCHARGE: Much improved. The patient is calm and in behavioral control. She is sleeping well. She is no longer presenting with manic exacerbation. She is stabilized well on current medications. She reports self detoxing from alcohol and opiate use prior to presentation. She has accepted referral to [facility] for substance use treatment. She denies suicidal ideation. She reports readiness to attend substance use treatment along with some anxiety, which is understandable. The patient has been pleasant and cooperative. She has been helpful to peers and generally pleasant to work with. MENTAL STATUS EXAM: A 57-year-old white female who is well groomed and dressed in her own clothing. She is alert and oriented x3. Eye contact is good. Speech is soft, articulate, unpressured. Mood is anxious with congruent affect. Thought content is negative for suicidal ideation, HI, or . She denies auditory or visual hallucinations. Thought content is void of delusions or obsessions. Her insight and judgment are good. Fund of knowledge is excellent. INSTRUCTIONS GIVEN TO PATIENT: A. Medications: 1. Plaquenil 200 mg p.o. b.i.d. 2. Archbold 300 mg in a.m., 600 mg at bedtime. 3. Methotrexate 15 mg p.o. every Thursday. 4. [place]ahone-3 fatty acids 1 b.i.d. 5. Propranolol 60 mg p.o. b.i.d. 6. Quetiapine XR 800 mg at bedtime. B. Diet: Regular. C. Activity: Ambulation as tolerated. Tobacco cessation is not applicable. The patient reports she is no longer smoking. There are no pending labs or diagnostic studies. D. Followup care: The patient will follow up for inpatient substance use treatment at [facility]. From there, she will resume with her primary care provider, Dr. Guy and [facility]. E. Substance use followup: As above. HOSPITAL COURSE: Part A. Reason for admission: The patient presented to the emergency department with her adult daughters due to alcohol and opiate abuse. According to the patient, she was experiencing mood dysregulation and became suicidal with the plan to overdose on her pain medicines. She finished her 30- day supply within 10 days. She reported going through opiate withdrawals and utilizing alcohol to assist in this. By the time she presented to the emergency department, she was no longer experiencing withdrawal symptoms. She was presenting with jackson including racing thoughts, pressured speech, high motivation and energy, excessive shopping, and grossly disorganization. Part B. Psychiatric treatment rendered: The patient was admitted to the adult behavioral services unit on involuntary status. Her code status was full. She was placed on 15-minute checks for her safety. The admitting physician started with quetiapine due to the patient's report of efficacy in the past. The patient was also agreeable to restart lithium. We titrated this eventually to 300 mg in the morning and 600 mg at bedtime. Her most recent lithium level on 08/16/18 was 0.47. Her clinical response was adequate at that time, so it is not necessary to continue titration. The patient reported significant improvement in sleep with quetiapine XR at 800 mg. Quetiapine IR had been utilized in the past with limited effect and significant daytime sedation. Although, it took some time, the patient stabilized on the mental health unit. She showed improvement in sleep and energy level. She identified desire to continue with plan to attend inpatient substance use treatment. She reported having been treated at [facility] in the past and identified this to be a primary choice. She was accepted at [facility] with a bed date of 08/20/18. The patient and social work coordinated with her sister who is a physician and lives nearby to [facility]. All of the above agreed first Maddie to be discharged to her sister the night before and to attend [facility] the following day. The patient was given discharge instructions by nursing staff. She was encouraged to call with any questions or concerns after discharge and given information for this. She stated understanding of prescription medications. GIACOMO CASE NP [id number]/[facility] #: [id number] [facility]
== END 2018-08-19 19:00 | disposition home or self-care (01) | DRG 753 ==
LOC: ED 18:23 → BSU 22:37
PROVIDERS: ADMIT Psychiatry & Neurology Psychiatry; ATTEND Psychiatry & Neurology Psychiatry
PROC: GZHZZZZ Group Psychotherapy (ICD-10-PCS; principal; 2018-08-10)
DX: F31.10 Bipolar disorder, current episode manic without psychotic features, unspecified (principal); R45.851 Suicidal ideations; F17.210 Nicotine dependence, cigarettes, uncomplicated; M06.9 Rheumatoid arthritis, unspecified; L02.426 Furuncle of left lower limb; Z62.810 Personal history of physical and sexual abuse in childhood; F10.21 Alcohol dependence, in remission; F11.21 Opioid dependence, in remission; F41.9 Anxiety disorder, unspecified; I10 Essential (primary) hypertension; F43.10 Post-traumatic stress disorder, unspecified; Z88.6 Allergy status to analgesic agent; Z88.1 Allergy status to other antibiotic agents; Z82.49 Family history of ischemic heart disease and other diseases of the circulatory system; Z80.42 Family history of malignant neoplasm of prostate; Z80.0 Family history of malignant neoplasm of digestive organs; Z81.8 Family history of other mental and behavioral disorders
CPT/HCPCS: 36415; 70450; 80053; 80061; 80178; 80307; 80320; 80329; 81003; 83036; 84443; 85025; 90853; 99222; 99231; 99232; 99238; 99285; A9270-GY; G0480; J8610

== ENCOUNTER 2019-03-08 16:45 | Emergency (ER) | payer OTHER ==
[2019-03-08] MEDS ORDERED: NS 0.9% 1000 ML** 1,000 ML IV ONE (17:39)
[2019-03-08] MEDS ORDERED: Ondansetron INJ* 2 MG/ML VIAL IV ONE (17:40)
[2019-03-08 17:52] LABS: Urine Appearance Clear; Urine Bilirubin Negative (Negative); Urine Blood Negative (Negative); Urine Color Colorless; Urine Glucose Negative (Negative); Urine Ketones Negative (Negative); Urine Nitrite Negative (Negative); Urine Protein Negative (Negative); Urine Urobilinogen Negative (Negative)
[2019-03-08] MEDS ORDERED: Al Hydrox/Mg Hydrox/Simet LIQ* 30 ML UDC PO ONE (18:07)
[2019-03-08] MEDS ORDERED: Lidocaine 2% VISCOUS* 15 ML UDC PO ONE (18:07)
[2019-03-08 18:18] LABS: ABS Eosinophils 0.1 10^3/ul (0-0.6); ABS Lymphocytes 1.2 10^3/ul (1.0-4.8); ABS Monocytes 0.4 10^3/ul (0-0.8); ABS Neutrophils 2.6 10^3/ul (1.5-7.7); Eosinophil % 1.5 %; Hematocrit 40 % (35-47); Hemoglobin 13.8 g/dL (12.0-16.0); Lymphocyte % 27.9 %; Mean Corpuscular HGB Conc 35 g/dL (31-36); Mean Corpuscular Hemoglobin 33 pg (27-31); Mean Corpuscular Volume 96 fL (80-97); Mean Platelet Volume 7.7 fL (7.4-10.4); Nucleated Red Blood Cells % 0.2; Platelet Count 320 10^3/uL (150-450); Red Blood Count 4.15 10^6 /uL (3.70-4.87); Red Cell Distribution Width 14 % (10-15); White Blood Count 4.3 10^3/uL (3.5-10.8)
[2019-03-08 18:39] LABS: ALT 15 U/L (7-52); AST 16 U/L (13-39); Albumin 4.5 g/dL (3.2-5.2); Albumin/Globulin Ratio 1.6 (1-3); Alkaline Phosphatase 49 U/L (34-104); Anion Gap 7 mmol/L (2-11); Blood Urea Nitrogen 5 mg/dL (6-24); C Reactive Protein 3.51 mg/L (<8.01); CO2 Carbon Dioxide 27 mmol/L (22-32); Calcium 10.5 mg/dL (8.6-10.3); Chloride 97 mmol/L (101-111); EGFR African American 102.7 (>60); EGFR Non-African American 84.8 (>60); Globulin 2.8 g/dL (2-4); Glucose 90 mg/dL (70-100); Potassium 3.5 mmol/L (3.5-5.0); Sodium 131 mmol/L (135-145); Total Protein 7.3 g/dL (6.4-8.9)
[2019-03-08 18:55] LABS: Lithium 0.52 mmol/L (0.6-1.2)
[2019-03-08] MEDS ORDERED: Pantoprazole TAB * 40 MG TAB PO ONE (19:40)
--- NOTE | 2019-03-08 19:40 | ED ---
Abdominal Pain/Female - HPI Summary HPI Summary: Patient complains of chronic sternal and epigastric burning worse with meals, chronic alternating between constipation and diarrhea, and vomiting starting early this morning, and weakness starting this morning. Patient states she had not had bowel movement for 5 days, but took Colace and had several bowel movements this morning. Patient appears extremely anxious. Denies fever, cough , sore throat, CP, SOB, change in urine, vaginal symptoms. Medical history is RA, HTN. Abdominal surgical history is 2. States she does not take medications for acid reflux, and drinks lots of coffee. - History of Current Complaint Chief Complaint: EDNauseaVomitDiarrh Stated Complaint: DIARRHEA/VOMITING PER PT Time Seen by Provider: 03/08/19 17:34 Hx Obtained From: Patient Hx Last Menstrual Period: 09/04/12 Onset/Duration: Gradual Onset, Lasting Weeks Timing: Intermittent Episode Lasting Severity Initially: Mild Severity Currently: Mild Pain Intensity: 2 Pain Scale Used: 0-10 Numeric Location: Epigastric Radiates: Yes Radiates to: Chest Character: Burning Aggravating Factor(s): Food Alleviating Factor(s): Nothing Associated Signs and Symptoms: Positive: Nausea, Vomiting, Diarrhea Allergies/Adverse Reactions: Allergies Allergy/AdvReac Type Severity Reaction Status Date / Time bupropion Allergy Severe Dizziness Verified 03/08/19 17:37 moxifloxacin Allergy Intermediate Vomiting Verified 03/08/19 17:37 Home Medications: Home Medications Anatone-3 Fatty Acids (Nf) [Fish Oil (NF)] 1,000 mg PO DAILY 03/08/19 [History Confirmed 03/08/19] QUEtiapine XR TAB* [Seroquel Xr 200 TAB*] 600 mg PO BEDTIME 03/08/19 [History Confirmed 03/08/19] PMH/Surg Hx/FS Hx/Imm Hx Endocrine/Hematology History: Reports: Other Endocrine/Hematological Disorders - RA Denies: Hx Diabetes, Hx Thyroid Disease Cardiovascular History: Reports: Hx Hypertension Respiratory History: Reports: Other Respiratory Problems/Disorders - RA Denies: Hx Asthma, Hx Chronic Obstructive Pulmonary Disease (COPD) GI History: Denies: Hx Ulcer Musculoskeletal History: Reports: Hx Arthritis - Rheumatoid Denies: Hx Scoliosis Sensory History: Reports: Hx Vision Problem - Reports needing glasses Denies: Hx Contacts or Glasses, Hx Hearing Aid Opthamlomology History: Reports: Hx Vision Problem - Reports needing glasses Denies: Hx Contacts or Glasses EENT History: Denies: Hx Deafness Neurological History: Reports: Other Neuro Impairments/Disorders - RA Denies: Hx Headaches Psychiatric History: Reports: Hx Anxiety, Hx Depression, Hx Post Traumatic Stress Disorder, Hx Inpatient Treatment, Hx Community Mental Health Tx, Hx Bipolar Disorder, Hx Suicide Attempt - Cut Wrists, Hx Substance Abuse Denies: Hx Eating Disorder, Hx of Violent Episodes Against Others - Surgical History Surgery Procedure, Year, and Place: csection x2, vaginal reconstruction - Immunization History Immunizations Up to Date: Yes Infectious Disease History: No Infectious Disease History: Denies: Hx Hepatitis, Hx Human Immunodeficiency Virus (HIV), Traveled Outside the [place] in Last 30 Days - Family History Known Family History: Positive: Cardiac Disease - CHF, Other - Colon CA, prostate CA Family History: Two brothers who have committed suicide. - Social History Alcohol Use: Daily Hx Substance Use: No Substance Use Type: Reports: Prescribed Hx Tobacco Use: Yes Smoking Status (MU): Current Every Day Smoker Type: Cigarettes Amount Used/How Often: < 1 PPD Length of Time of Smoking/Using Tobacco: Since age 16 Have You Smoked in the Last Year: Yes Review of Systems Constitutional: Negative Eyes: Negative ENT: Negative Cardiovascular: Negative Respiratory: Negative Positive: Abdominal Pain, Vomiting, Diarrhea, Nausea Genitourinary: Negative Musculoskeletal: Negative Skin: Negative Positive: Weakness Psychological: Normal All Other Systems Reviewed And Are Negative: Yes Physical Exam - Summary Physical Exam Summary: Abdomen soft nontender. Lung sounds clear to auscultation bilaterally. Triage Information Reviewed: Yes Vital Signs On Initial Exam: Initial Vitals Temp Pulse Resp BP Pulse Ox 97.3 F 67 18 169/105 99 03/08/19 16:48 03/08/19 16:48 03/08/19 16:48 03/08/19 16:48 03/08/19 16:48 Vital Signs Reviewed: Yes Appearance: Positive: Well-Appearing Skin: Positive: Warm Head/Face: Positive: Normal Head/Face Inspection Eyes: Positive: Normal ENT: Positive: Normal ENT inspection Neck: Positive: Supple Respiratory/Lung Sounds: Positive: Clear to Auscultation Cardiovascular: Positive: Normal Abdomen Description: Positive: Nontender Musculoskeletal: Positive: Normal Neurological: Positive: Normal Psychiatric: Positive: Normal AVPU Assessment: Alert - Ferris Coma Scale Best Eye Response: 4 - Spontaneous Best Motor Response: 6 - Obeys Commands Best Verbal Response: 5 - Oriented Coma Scale Total: 15 Diagnostics - Vital Signs Vital Signs Temp Pulse Resp BP Pulse Ox 03/08/19 19:01 60 161/86 96 03/08/19 19:00 61 98 03/08/19 18:31 165/91 03/08/19 18:13 147/92 03/08/19 18:11 61 98 03/08/19 17:31 64 171/99 100 03/08/19 17:30 66 97 03/08/19 16:48 97.3 F 67 18 169/105 99 - Laboratory Lab Results: Lab Results 03/08/19 03/08/19 03/08/19 Range/Units 17:32 18:05 18:09 WBC 4.3 (3.5-10.8) 10^3/uL RBC 4.15 (3.70-4.87) 10^6 /uL Hgb 13.8 (12.0-16.0) g/dL Hct 40 (35-47) % MCV 96 (80-97) fL MCH 33 H (27-31) pg MCHC 35 (31-36) g/dL RDW 14 (10-15) % Plt Count 320 (150-450) 10^3/uL MPV 7.7 (7.4-10.4) fL Neut % (Auto) 60.0 % Lymph % (Auto) 27.9 % [place] % (Auto) 10.2 % Eos % (Auto) 1.5 % Baso % (Auto) 0.4 % Absolute Neuts (auto) 2.6 (1.5-7.7) 10^3/ul Absolute Lymphs (auto) 1.2 (1.0-4.8) 10^3/ul Absolute Monos (auto) 0.4 (0-0.8) 10^3/ul Absolute Eos (auto) 0.1 (0-0.6) 10^3/ul Absolute Basos (auto) 0.0 (0-0.2) 10^3/ul Absolute Nucleated RBC 0.0 10^3/ul Nucleated RBC % 0.2 Sodium (135-145) mmol/L Potassium (3.5-5.0) mmol/L Chloride (101-111) mmol/L Carbon Dioxide (22-32) mmol/L Anion Gap (2-11) mmol/L BUN (6-24) mg/dL Creatinine (0.51-0.95) mg/dL Est GFR ( Amer) (>60) Est GFR (Non-Af Amer) (>60) BUN/Creatinine Ratio (8-20) Glucose (70-100) mg/dL Lactic Acid 0.7 (0.5-2.0) mmol/L Calcium (8.6-10.3) mg/dL Total Bilirubin (0.2-1.0) mg/dL AST (13-39) U/L ALT (7-52) U/L Alkaline Phosphatase (34-104) U/L Troponin I (<0.04) ng/mL C-Reactive Protein (<8.01) mg/L Total Protein (6.4-8.9) g/dL Albumin (3.2-5.2) g/dL Globulin (2-4) g/dL Albumin/Globulin Ratio (1-3) Lipase (11.0-82.0) U/L Urine Color Colorless Urine Appearance Clear Urine pH 8.0 (5-9) Ur Specific [place] 1.000 L (1.010-1.030) Urine Protein Negative (Negative) Urine Ketones Negative (Negative) Urine Blood Negative (Negative) Urine Nitrate Negative (Negative) Urine Bilirubin Negative (Negative) Urine Urobilinogen Negative (Negative) Ur Leukocyte Esterase Negative (Negative) Urine Glucose Negative (Negative) Pana (0.6-1.2) mmol/L 03/08/19 Range/Units 18:09 WBC (3.5-10.8) 10^3/uL RBC (3.70-4.87) 10^6 /uL Hgb (12.0-16.0) g/dL Hct (35-47) % MCV (80-97) fL MCH (27-31) pg MCHC (31-36) g/dL RDW (10-15) % Plt Count (150-450) 10^3/uL MPV (7.4-10.4) fL Neut % (Auto) % Lymph % (Auto) % [place] % (Auto) % Eos % (Auto) % Baso % (Auto) % Absolute Neuts (auto) (1.5-7.7) 10^3/ul Absolute Lymphs (auto) (1.0-4.8) 10^3/ul Absolute Monos (auto) (0-0.8) 10^3/ul Absolute Eos (auto) (0-0.6) 10^3/ul Absolute Basos (auto) (0-0.2) 10^3/ul Absolute Nucleated RBC 10^3/ul Nucleated RBC % Sodium 131 L (135-145) mmol/L Potassium 3.5 (3.5-5.0) mmol/L Chloride 97 L (101-111) mmol/L Carbon Dioxide 27 (22-32) mmol/L Anion Gap 7 (2-11) mmol/L BUN 5 L (6-24) mg/dL Creatinine 0.71 (0.51-0.95) mg/dL Est GFR ( Amer) 102.7 (>60) Est GFR (Non-Af Amer) 84.8 (>60) BUN/Creatinine Ratio 7.0 L (8-20) Glucose 90 (70-100) mg/dL Lactic Acid (0.5-2.0) mmol/L Calcium 10.5 H (8.6-10.3) mg/dL Total Bilirubin 0.80 (0.2-1.0) mg/dL AST 16 (13-39) U/L ALT 15 (7-52) U/L Alkaline Phosphatase 49 (34-104) U/L Troponin I 0.00 (<0.04) ng/mL C-Reactive Protein 3.51 (<8.01) mg/L Total Protein 7.3 (6.4-8.9) g/dL Albumin 4.5 (3.2-5.2) g/dL Globulin 2.8 (2-4) g/dL Albumin/Globulin Ratio 1.6 (1-3) Lipase 18 (11.0-82.0) U/L Urine Color Urine Appearance Urine pH (5-9) Ur Specific [place] (1.010-1.030) Urine Protein (Negative) Urine Ketones (Negative) Urine Blood (Negative) Urine Nitrate (Negative) Urine Bilirubin (Negative) Urine Urobilinogen (Negative) Ur Leukocyte Esterase (Negative) Urine Glucose (Negative) Pana 0.52 L (0.6-1.2) mmol/L Result Diagrams: 03/08/19 18:09 03/08/19 18:09 Lab Statement: Any lab studies that have been ordered have been reviewed, and results considered in the medical decision making process. Abdominal Pain Fem Course/Dx - Course Course Of Treatment: Patient complains of chronic sternal and epigastric burning worse with meals, chronic alternating between constipation and diarrhea , and vomiting starting early this morning, and weakness starting this morning. Patient states she had not had bowel movement for 5 days, but took Colace and had several bowel movements this morning. Patient appears extremely anxious. Denies fever, cough, sore throat, CP, SOB, change in urine, vaginal symptoms. Medical history is RA, HTN. Abdominal surgical history is 2. States she does not take medications for acid reflux, and drinks lots of coffee. Vital signs within normal limits. Sodium 131. Labs otherwise unremarkable. Patient given 1 L normal saline, GI cocktail and Zofran. Patient stated she felt incredibly better after treatment and felt ready to go home. Mental health evaluation had been initially ordered due to patient's anxiety and rambling speech. Howevver, patient was much more energetic and calm and coherent after treatment. Patient then refused mental health evaluation. Patient refused Rx for PPI, stating she had [id number] Nexium at home. Patient was advised to follow-up with GI for further evaluation of possible chronic acid reflux. Patient understands and improves up plan. - Diagnoses Provider Diagnoses: Gastritis Discharge - Sign-Out/Discharge Documenting (check all that apply): Patient Departure Patient Received Moderate/Deep Sedation with Procedure: No - Discharge Plan Condition: Stable Disposition: HOME Prescriptions: Lidocaine 2% VISCOUS* [Xylocaine 2% Viscous*] 15 ml SWISH SPIT Q6H PRN #1 btl PRN Reason: Pain - Mild Patient Education Materials: Gastritis (ED) Referrals: Cristina Guy MD [Primary Care Provider] - Additional Instructions: Take Nexium 20 mg daily. Take viscous lidocaine for breakthrough pain. Follow- up with your sales professional bilingual for further evaluation and possible endoscopy. Return to the ED for any new or worsening symptoms. - Billing Disposition and Condition Condition: STABLE Disposition: Home - Attestation Statements Provider Attestation: I was available for consult. This patient was seen by the LORI. The patient was not presented to, seen by, or examined by me. Dewayne Quintanilla MD
[2019-03-08 20:06] LABS: Alcohol < 10 mg/dL (<10)
[2019-03-08] MEDS ORDERED: QUEtiapine XR TAB* 300 MG PO ONE (20:42)
[2019-03-08 21:59] VITALS: BP 168/86
== END 2019-03-08 21:55 | disposition home or self-care (01) ==
LOC: ED 16:45
DX: K29.70 Gastritis, unspecified, without bleeding (principal); M06.9 Rheumatoid arthritis, unspecified; I10 Essential (primary) hypertension; F17.210 Nicotine dependence, cigarettes, uncomplicated; Z88.1 Allergy status to other antibiotic agents; Z88.8 Allergy status to other drugs, medicaments and biological substances; Z79.899 Other long term (current) drug therapy
CPT/HCPCS: 36415; 74018; 80053; 80178; 80320; 81003; 83605; 83690; 84484; 85025; 86140; 93005; 96361; 96374; 99284; A9270-GY; G0480; J2405